=== PATIENT | female | born 1945 | race Caucasian/White ===

== ENCOUNTER 2020-01-03 13:23 | Observation (INO) | payer MEDICARE, OTHER, SELFPAY ==
[2020-01-03] VITALS (21 sets, daily range): BP systolic 168–242; BP diastolic 80–123; PULSE 75–117; RESP 11–24; TEMP 36.8–36.9; O2SAT 97–100; BMI 23.6
--- NOTE | 2020-01-03 13:31 | DI.RAD.S_ITS ---
PROCEDURE: XR CHEST 1V INDICATIONS: chest pain TECHNIQUE: One view of the chest was acquired. COMPARISON: None. FINDINGS: Surgical changes and devices: None. Lungs and pleura: Lungs are clear. No pleural effusions or pneumothorax. Mediastinum: The cardiac contours are within normal limits. The aorta demonstrates calcification and tortuosity. Bones and chest wall: Age-appropriate bony degenerative changes are seen. Mild dextroconvex scoliotic curvature is seen. No suspicious bony lesions. Overlying soft tissues appear unremarkable. IMPRESSION: No acute portable chest abnormality is seen for age. Dictated by: Prieto Frazier M.D. on 01/03/2020 at 13:22 Approved by: Prieto Frazier M.D. on 01/03/2020 at 13:22
[2020-01-03 13:59] LABS: Add Manual Diff / Slide Review NO; Basophils Absolute Auto 100 /uL (0-100); Basophils Percent Auto 1.8 % (0-2); Eosinophils Absolute Auto 200 /uL (0-450); Eosinophils Percent Auto 3.7 % (2-4); Hematocrit 42.4 % (36-46); Hemoglobin 14.4 g/dL (12.0-16.0); INR 0.9 (0.9-1.3); Lymphocytes Absolute Auto 1800 /uL (1100-4500); Lymphocytes Percent Auto 27.1 % (25-40); Mean Corpuscular HGB Conc 33.9 % (30-36); Mean Corpuscular Hemoglobin 33.6 PG (26-34); Mean Corpuscular Volume 99.1 fL (80-100); Monocytes Absolute Auto 500 /uL (0-900); Monocytes Percent Auto 7.5 % (3-14); Neutrophils Absolute Auto 4000 /uL (1500-7000); Neutrophils Percent Auto 59.9 % (50-75); Platelet Count 311 X10^3/uL (150-400); Prothrombin Time 10.2 SECONDS (10.1-12.7); Red Blood Cell Count 4.28 X10^6/uL (4.0-5.2); Red Cell Distribution Width 12.5 % (11.6-14.8); White Blood Cell Count 6.7 X10^3/uL (4.5-11.0)
[2020-01-03 14:01] LABS: PTT Partial Thromboplastin Tim 28 SECONDS (26.4-36.2)
--- NOTE | 2020-01-03 14:01 | ED_ITS ---
HPI - Chest Pain General Chief Complaint: Chest Pain Stated Complaint: PRESSURE IN CHEST Time Seen by Provider: 01/03/20 13:31 Source: patient Mode of arrival: Ambulatory Limitations: no limitations History of Present Illness HPI narrative: Patient complains of worsening substernal chest pressure/heaviness in the past 2 weeks. Worse the last few days. Now her usual activities of walking during golfing or stair climbing causes shortness of breath as well as chest pressure. Currently 07/07. No previous cardiac workup stress test or echocardiogram. Does not smoke. Does take blood pressure medication the mornings. Has history of anxiety. Feels anxious now. Blood pressure noted at this time. No nausea sweating or diaphoresis. No recent long travel immobilization or surgeries. No history of blood clots in legs or lungs. MD complaint: chest pain Related Data Home Medications Medication Instructions Recorded Confirmed aspirin 81 mg PO WEEKLY 01/03/20 01/03/20 cholecalciferol (vitamin D3) 25 mcg PO DAILY 01/03/20 01/03/20 [Vitamin D3] coQ10 (ubiquinol) 100 mg PO DAILY 01/03/20 01/03/20 latanoprost 1 drp EYE-BOTH BEDTIME 01/03/20 01/03/20 lisinopril 40 mg PO DAILY 01/03/20 01/03/20 metoprolol succinate [Toprol XL] 25 mg PO DAILY 01/03/20 01/03/20 metronidazole 1 applic TOPICAL BEDTIME 01/03/20 01/03/20 dqkulgyf-vim-FF-lycopen-lutein 1 tab PO DAILY 01/03/20 01/03/20 [Centrum Silver] psyllium husk [Metamucil] 0.8 g PO DAILY 01/03/20 01/03/20 rosuvastatin 10 mg PO Q OTHER DAY 01/03/20 01/03/20 Allergies Allergy/AdvReac Type Severity Reaction Status Date / Time codeine Allergy Verified 01/03/20 13:31 Review of Systems Review of Systems Narrative: GENERAL: Denies chills, fatigue, malaise, fever, sweats. HEENT: Denies sinus pain, ear pain, sore throat, difficulty swallowing, dizziness. RESPIRATORY: Complains of dyspnea, denies cough, wheezing, hemoptysis, sputum. CARDIOVASCULAR: Complains chest pain, denies palpitations, orthopnea, edema, GASTROINTESTINAL: Denies nausea, vomiting, abdominal pain, diarrhea, constipation, melena. : Denies dysuria, frequency, incontinence, hematuria, urinary retention. MUSCULOSKELETAL: denies weakness, joint pain, or bony pain SKIN: Denies rash, skin lesions NEUROLOGIC: Denies weakness, headache, numbness, change in speech, confusion, seizures, incoordination. PSYCHIATRIC: No concerning psychosocial issues. ROS Unobtainable: All systems reviewed & are unremarkable except as noted in HPI and below Patient History Social History Smoking Status: Unknown if ever smoked Smoking Status: Unknown if ever smoked alcohol intake frequency: 0-2 drinks per day Substance Use Type: does not use Exam Narrative Exam Narrative: GENERAL: patient appears stated age. Well-nourished, well- developed patient, in no distress, not toxic HEAD: Atraumatic. Normocephalic. EYES: Pupils equal round and reactive. Extraocular motions intact. No scleral icterus. No injection or drainage. ENT: Nose without bleeding, purulent drainage. Throat without erythema, tonsilla r hypertrophy or exudate. Airway patent. NECK: Trachea midline. Non tender CARDIOVASCULAR: Regular rate and rhythm without murmurs, gallops, or rubs. RESPIRATORY: Clear to auscultation. Breath sounds equal bilaterally. No wheezes, rales, or rhonchi. GASTROINTESTINAL: Abdomen soft, non-tender, nondistended. EXTREMITIES: No edema or joint tenderness. BACK: Nontender without deformity or crepitance. No flank tenderness. NEURO: AOx4. SKIN: No rash or erythema of visible areas PSYCH: Not anxious, is cooperative Initial Vital Signs Initial Vital Signs: Vital Signs Temperature 98.2 F 01/03/20 13:26 Pulse Rate 95 H 01/03/20 13:26 Respiratory Rate 15 01/03/20 13:26 Blood Pressure 242/123 H 01/03/20 13:26 Pulse Oximetry 98 01/03/20 13:26 Course Course Course Narrative: Patient did have complete chest pressure relief after nitro. She took aspirin prior to arrival blood pressures improved Decision to Admit Date: 01/03/20 Decision to Admit time: 15:11 Orders Ordered: ED Orders 01/03/20 13:30 Complete Blood Count AUTO DIFF Stat Comprehensive Metabolic Panel Stat Lipase Stat Partial Thromboplastin Time Stat Prothrombin Time INR Stat Troponin & CK Cardiac Panel Stat 01/03/20 13:31 XR chest 1V Stat EKG-12 Lead Stat 01/03/20 14:40 COVID19 -ED/INPAT/OR/L&D Stat Discontinued Medications Aspirin (Aspirin Chew) 324 mg PO NOW ONE Stop: 01/03/20 14:02 Last Admin: 01/03/20 14:14 Dose: Not Given Documented by: SERGIO Nitroglycerin (Nitro-Bid) 0.5 inch TOP NOW ONE Stop: 01/03/20 14:02 Last Admin: 01/03/20 14:13 Dose: 0.5 inch Documented by: SERGIO Reevaluation(s) Reevaluation #1: Chest pain-free. Blood pressure improved 181/81 pulse 76 Time: 15:11 Consultations Consultation #1: Spoke with cardiology dr patricia, patient could be admitted here through hospitalist and have echocardiogram done tomorrow in complete series of enzymes. If normal can be discharged after tomorrow and have outpatient stress test on Sunday, otherwise patient can also be transferred to [facility] to hospitalist Time: 15:12 Consultation #2: Spoke with hospitalist Dr. Vivar, will admit Time: 15:43 Vital Signs Vital signs: Vital Signs - 8 hr 01/03/20 13:26 01/03/20 13:33 01/03/20 13:45 Temperature 98.2 F Pulse Rate 95 H 117 H 80 Respiratory Rate 15 15 11 L Blood Pressure 242/123 H 229/97 H Pulse Oximetry 98 100 100 01/03/20 14:00 01/03/20 14:01 01/03/20 14:13 Temperature Pulse Rate 77 78 75 Respiratory Rate 22 24 Blood Pressure 197/93 H 197/93 H Pulse Oximetry 100 100 01/03/20 14:15 01/03/20 14:30 01/03/20 14:45 Temperature Pulse Rate 75 76 76 Respiratory Rate 13 17 19 Blood Pressure 204/95 H 181/81 H 168/80 H Pulse Oximetry 100 100 99 01/03/20 15:00 01/03/20 15:15 01/03/20 15:30 Temperature Pulse Rate 103 H 81 80 Respiratory Rate 20 22 18 Blood Pressure 181/86 H 185/91 H 186/88 H Pulse Oximetry 99 99 99 01/03/20 15:45 01/03/20 16:00 01/03/20 16:15 Temperature Pulse Rate 81 109 H 81 Respiratory Rate 21 14 12 Blood Pressure 172/83 H 188/92 H 192/91 H Pulse Oximetry 99 99 98 MDM - Chest Pain Differential Diagnosis Differential diagnosis: Likely stable angina, unstable angina pectoris and atypical chest pain Lab Data Attestation: I reviewed the patient's lab results. Result diagrams: 01/03/20 13:30 01/03/20 13:30 Labs: Lab Results 01/03/20 01/03/20 01/03/20 Range/Units 13:30 13:30 13:30 WBC 6.7 (4.5-11.0) X10^3/uL RBC 4.28 (4.0-5.2) X10^6/uL Hgb 14.4 (12.0-16.0) g/dL Hct 42.4 (36-46) % MCV 99.1 (80-100) fL MCH 33.6 (26-34) PG MCHC 33.9 (30-36) % RDW 12.5 (11.6-14.8) % Plt Count 311 (150-400) X10^3/uL Neut % (Auto) 59.9 (50-75) % Lymph % (Auto) 27.1 (25-40) % [place] % (Auto) 7.5 (3-14) % Eos % (Auto) 3.7 (2-4) % Baso % (Auto) 1.8 (0-2) % Neut # (Auto) 4000 (2394-0553) /uL Lymph # (Auto) 1800 (5719-6612) /uL [place] # (Auto) 500 (0-900) /uL Eos # (Auto) 200 (0-450) /uL Baso # (Auto) 100 (0-100) /uL PT 10.2 (10.1-12.7) SECONDS INR 0.9 (0.9-1.3) APTT 28 (26.4-36.2) SECONDS Sodium 131 L (137-145) mmol/L Potassium 4.0 (3.4-5.1) mmol/L Chloride 96 L (98-107) mmol/L Carbon Dioxide 27 (22-32) mmol/L BUN 9 (7-17) mg/dL Creatinine 0.54 (0.52-1.04) mg/dL Estimated GFR > 60.0 (>60) mL/min BUN/Creatinine Ratio 16.7 (6-22) Glucose 113 H (80-110) mg/dL Calcium 9.6 (8.4-10.2) mg/dL Total Bilirubin 0.7 (0.2-1.3) mg/dL AST 49 H (14-36) IU/L ALT 31 (<35) IU/L Alkaline Phosphatase 85 (38-126) U/L Total Creatine Kinase 274 H (30-135) U/L CK-MB (CK-2) 9.87 H (<2.37) ng/mL CK-MB (CK-2) Rel Index 3.6 (1.5-5.0) % Troponin I < 0.012 (0.01-0.034) ng/mL Total Protein 8.3 H (6.3-8.2) g/dL Albumin 5.0 (3.5-5.0) g/dL Globulin 3.3 (1.7-4.1) g/dL Albumin/Globulin Ratio 1.5 (1.0-2.8) Lipase 133 (23-300) U/L COVID-19 PCR (Negative) 01/03/20 Range/Units 14:40 WBC (4.5-11.0) X10^3/uL RBC (4.0-5.2) X10^6/uL Hgb (12.0-16.0) g/dL Hct (36-46) % MCV (80-100) fL MCH (26-34) PG MCHC (30-36) % RDW (11.6-14.8) % Plt Count (150-400) X10^3/uL Neut % (Auto) (50-75) % Lymph % (Auto) (25-40) % [place] % (Auto) (3-14) % Eos % (Auto) (2-4) % Baso % (Auto) (0-2) % Neut # (Auto) (9592-9088) /uL Lymph # (Auto) (1730-7703) /uL [place] # (Auto) (0-900) /uL Eos # (Auto) (0-450) /uL Baso # (Auto) (0-100) /uL PT (10.1-12.7) SECONDS INR (0.9-1.3) APTT (26.4-36.2) SECONDS Sodium (137-145) mmol/L Potassium (3.4-5.1) mmol/L Chloride (98-107) mmol/L Carbon Dioxide (22-32) mmol/L BUN (7-17) mg/dL Creatinine (0.52-1.04) mg/dL Estimated GFR (>60) mL/min BUN/Creatinine Ratio (6-22) Glucose (80-110) mg/dL Calcium (8.4-10.2) mg/dL Total Bilirubin (0.2-1.3) mg/dL AST (14-36) IU/L ALT (<35) IU/L Alkaline Phosphatase (38-126) U/L Total Creatine Kinase (30-135) U/L CK-MB (CK-2) (<2.37) ng/mL CK-MB (CK-2) Rel Index (1.5-5.0) % Troponin I (0.01-0.034) ng/mL Total Protein (6.3-8.2) g/dL Albumin (3.5-5.0) g/dL Globulin (1.7-4.1) g/dL Albumin/Globulin Ratio (1.0-2.8) Lipase (23-300) U/L COVID-19 PCR Negative (Negative) Imaging Data Chest x-ray: Radiologist's Impression: [address] [address] XRay Report Signed Patient: Joy Paniagua LMR#: [id number] : 6Acct:[id number] Age/Sex: 74 / FDate of Service: 01/03/20 Loc: ED Accession Number: [id number] Procedure: XR chest 1V Ordering Provider: Jitendra Sequeira MD PROCEDURE: XR CHEST 1V INDICATIONS: chest pain TECHNIQUE: One view of the chest was acquired. COMPARISON: None. FINDINGS: Surgical changes and devices: None. Lungs and pleura: Lungs are clear. No pleural effusions or pneumothorax. Mediastinum: The cardiac contours are within normal limits. The aorta demonstrates calcification and tortuosity. Bones and chest wall: Age-appropriate bony degenerative changes are seen. Mild dextroconvex scoliotic curvature is seen. No suspicious bony lesions. Overlying soft tissues appear unremarkable. IMPRESSION: No acute portable chest abnormality is seen for age. Dictated by: Prieto Frazier M.D. on 01/03/2020 at 13:22 Approved by: Prieto Frazier M.D. on 01/03/2020 at 13:22 ECG Data Attestation: I personally reviewed and interpreted this ECG as follows: Interpretation: Sinus tachycardia rate [address] elevation or depression MDM Narrative Medical decision making narrative: Appropriate for admission hospital. Blood pressure noted on arrival, has improved. Chest pain relief with nitro paste. Spoke with oxyhydrogen welder for recommendations Discharge Plan Departure Patient Disposition: Admitted as Observation Clinical Impression: Stable angina Discharge Date/Time: 01/03/20 16:35 Admit Date/Time: 01/03/20 16:34 Admit Provider: Erendira Vivar
[2020-01-03 14:03] LABS: Alanine Aminotransferase 31 IU/L (<35); Albumin Globulin Ratio 1.5 (1.0-2.8); Alkaline Phosphatase 85 U/L (38-126); Aspartate Aminotransferase 49 IU/L (14-36); BUN Creatinine Ratio 16.7 (6-22); Bilirubin Total 0.7 mg/dL (0.2-1.3); Blood Urea Nitrogen 9 mg/dL (7-17); Calcium 9.6 mg/dL (8.4-10.2); Carbon Dioxide 27 mmol/L (22-32); Chloride 96 mmol/L (98-107); Creatine Kinase 274 U/L (30-135); Estimated Glomerular Filt Rate > 60.0 mL/min (>60); Globulin 3.3 g/dL (1.7-4.1); Glucose 113 mg/dL (80-110); HEMOLYSIS < 15 (0-50); Lipase 133 U/L (23-300); Sodium 131 mmol/L (137-145); Total Protein 8.3 g/dL (6.3-8.2)
--- NOTE | 2020-01-03 14:06 | PC.NURSE ---
Denies chest pain. Reports substernal/epigastric chest pressure for the past 3 weeks that has worsened over the last 4-5 days.
[2020-01-03] MEDS: NITROGLYCERIN OINT 1 INCH/GM OINT...G. 0.5 INCH TOP (14:13)
--- NOTE | 2020-01-03 14:14 | PC.NURSE ---
Pt reported that she took 325mg PO aspirin immediately before coming to ED today. MD aware and ED aspirin not given
[2020-01-03 14:16] LABS: Troponin I < 0.012 ng/mL (0.01-0.034)
[2020-01-03 14:18] LABS: CKMB % Relative Index 3.6 % (1.5-5.0); Creatine Kinase MB 9.87 ng/mL (<2.37)
[2020-01-03 15:00] LABS: COVID19 -Nasal RAPID Negative (Negative)
--- NOTE | 2020-01-03 17:20 | PC.ADMIT ---
Admission Note: The patient,Joy Paniagua,74 y/o, was given written information regarding hospital policies, unit procedures and contact persons. Patient's smoking status: Unknown if ever smoked. Pt arrived from ED via stretcher. Oriented to room and call system. Denies chest pain or pressure. Dinner provided. Pt verbalized she will call for needs. Bed alarm placed on for safety. Vital Signs - 8 hr 01/03/20 13:26 01/03/20 13:33 01/03/20 13:45 Temperature 98.2 F Pulse Rate 95 H 117 H 80 Respiratory Rate 15 15 11 L Blood Pressure 242/123 H 229/97 H Pulse Oximetry 98 100 100 01/03/20 14:00 01/03/20 14:01 01/03/20 14:13 Temperature Pulse Rate 77 78 75 Respiratory Rate 22 24 Blood Pressure 197/93 H 197/93 H Pulse Oximetry 100 100 01/03/20 14:15 01/03/20 14:30 01/03/20 14:45 Temperature Pulse Rate 75 76 76 Respiratory Rate 13 17 19 Blood Pressure 204/95 H 181/81 H 168/80 H Pulse Oximetry 100 100 99 01/03/20 15:00 01/03/20 15:15 01/03/20 15:30 Temperature Pulse Rate 103 H 81 80 Respiratory Rate 20 22 18 Blood Pressure 181/86 H 185/91 H 186/88 H Pulse Oximetry 99 99 99 01/03/20 15:45 01/03/20 16:00 01/03/20 16:15 Temperature Pulse Rate 81 109 H 81 Respiratory Rate 21 14 12 Blood Pressure 172/83 H 188/92 H 192/91 H Pulse Oximetry 99 99 98 01/03/20 17:13 01/03/20 17:15 Temperature Pulse Rate 83 Respiratory Rate Blood Pressure 189/96 H Pulse Oximetry 98
[2020-01-03] MEDS: AMLODIPINE 5 MG TABLET 10 MG PO (17:28)
[2020-01-03] MEDS: NITROGLYCERIN OINT 1 INCH/GM OINT...G. TOP (17:29)
[2020-01-03 18:48] LABS: UR Morphine/Opiate cutoff 300 Negative (Negative); Ur Creatinine Normal (Normal); Ur Specific Gravity Normal (Normal); Urine Amphetamines Negative (Negative); Urine Barbiturates Negative (Negative); Urine Benzodiazepines Negative (Negative); Urine Cocaine Negative (Negative); Urine MDMA Negative (Negative); Urine Methadone Negative (Negative); Urine Methamphetamines Negative (Negative); Urine Oxycodone Negative (Negative); Urine Phencyclidine Negative (Negative); Urine Tetrahydrocannabinol Negative (Negative); Urine Tricyclic Antidepressant Negative (Negative); Urine pH Normal (Normal)
[2020-01-03 20:00] LABS: Hemoglobin A1C% w Est Avg Glu 5.5 % (4.0-6.0)
[2020-01-03] MEDS: ROSUVASTATIN 10 MG TABLET PO (21:10)
[2020-01-03 21:27] LABS: Troponin I < 0.012 ng/mL (0.01-0.034)
--- NOTE | 2020-01-03 21:52 | P.HP_ITS ---
History of Present Illness History of Present Illness Date Patient Seen: 01/03/20 Time Patient Seen: 19:40 Chief complaint: PRESSURE IN CHEST Narrative: Joy Paniagua is a very delightful 74-year-old female who presented with a several week history of intermittent chest pressure. It started to persist 3 days ago. 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 She had been thinking it was mostly due to stress and anxiety but was encouraged by her to have this checked out. She contacted [facility] and they encouraged her to come here instead of [facility] the triage provider thought that 3rd be a high probability she would need to be transferred if she wanted [facility]. She was requested for observation admission due to her having very high blood pressure which at the time of presentation to the ED was 242/123. She denies a history of headaches, chills fever, nausea or vomiting, actual sternal pain, palpitations, abdominal pain, she has had a couple of days of diarrhea, denies constipation, denies neurological symptoms. EKG indicated sinus tachycardia as reviewed by myself. Currently the patient is afebrile at 98.5, blood pressure 170/89, heart rate 83, respiratory rate 19, oxygen saturation of 97% on room air, she weighs 72.5 kg with a BMI of 23.6. Initial troponin in the ED was negative done at 1:30 p.m., second troponin done 6 hours later was also negative. CBC panel was all within normal limits, she was mildly hyponatremic with a sodium of 131, potassium 4.0, chloride 96, bicarb 27, creatinine 0.54, BUN 9, GFR is greater than 60, glucose mildly elevated 113, A1c 5.5, calcium 9.6, total bili was 0.7, AST 49, ALT 31, alk-phos 85, creatinine kinase was elevated at 274, CK-MB elevated at 9.87, 1930 troponin was negative, COVID-19 negative. Patient History Medical History (Updated 01/03/20 @ 22:01 by [place] [facility]) Essential hypertension (Chronic) Hyperlipidemia (Chronic) Surgical History (Updated 01/03/20 @ 22:01 by [place] [facility]) History of hysterectomy (Acute) History of repair of rotator cuff (Acute) Family & Social History Family History (Updated 01/03/20 @ 22:02 by [place] [facility]) Mother Esophageal cancer Tobacco dependence Father Lung cancer Tobacco dependence Social History: household members spouse Prior Living Arrangements House Safety & Behavioral: Feels Safe in Current Yes Environment Been Physically Hurt or No Threatened By a Person Suicidal Ideation Description None Tobacco & Substance use: Smoking Status never smoker alcohol intake frequency 0-2 drinks per day Substance Use Type does not use Meds Home Medications and Allergies Home Medications Medication Instructions Recorded Confirmed Type aspirin 81 mg PO WEEKLY 01/03/20 01/03/20 History cholecalciferol (vitamin D3) 25 mcg PO DAILY 01/03/20 01/03/20 History [Vitamin D3] coQ10 (ubiquinol) 100 mg PO DAILY 01/03/20 01/03/20 History latanoprost 1 drp EYE-BOTH BEDTIME 01/03/20 01/03/20 History lisinopril 40 mg PO DAILY 01/03/20 01/03/20 History metoprolol succinate [Toprol XL] 25 mg PO DAILY 01/03/20 01/03/20 History metronidazole 1 applic TOPICAL BEDTIME 01/03/20 01/03/20 History bqzrguqz-dsw-YP-lycopen-lutein 1 tab PO DAILY 01/03/20 01/03/20 History [Centrum Silver] psyllium husk [Metamucil] 0.8 g PO DAILY 01/03/20 01/03/20 History rosuvastatin 10 mg PO Q OTHER DAY 01/03/20 01/03/20 History Allergies Allergy/AdvReac Type Severity Reaction Status Date / Time codeine Allergy Verified 01/03/20 13:31 Review of Systems Review of Systems ROS: Yes All systems reviewed with the patient and are negative except as other matt documented Exam Vital Signs (past 8 hours): - 01/03/20 14:00 01/03/20 14:01 01/03/20 14:13 Temperature Pulse Rate 77 78 75 Respiratory Rate 22 24 Blood Pressure 197/93 H 197/93 H Pulse Oximetry 100 100 01/03/20 14:15 01/03/20 14:30 01/03/20 14:45 Temperature Pulse Rate 75 76 76 Respiratory Rate 13 17 19 Blood Pressure 204/95 H 181/81 H 168/80 H Pulse Oximetry 100 100 99 01/03/20 15:00 01/03/20 15:15 01/03/20 15:30 Temperature Pulse Rate 103 H 81 80 Respiratory Rate 20 22 18 Blood Pressure 181/86 H 185/91 H 186/88 H Pulse Oximetry 99 99 99 01/03/20 15:45 01/03/20 16:00 01/03/20 16:15 Temperature Pulse Rate 81 109 H 81 Respiratory Rate 21 14 12 Blood Pressure 172/83 H 188/92 H 192/91 H Pulse Oximetry 99 99 98 01/03/20 17:08 01/03/20 17:13 01/03/20 17:15 Temperature 98.5 F Pulse Rate 105 H 83 Respiratory Rate 19 Blood Pressure 189/96 H Pulse Oximetry 98 98 01/03/20 17:29 01/03/20 18:26 01/03/20 21:00 Temperature Pulse Rate 93 H 83 Respiratory Rate Blood Pressure 189/96 H 174/89 H Pulse Oximetry 97 Oxygen Delivery Method Room Air Oxygen Flow Rate 0 Narrative Exam Narrative: Gen: Alert, oriented, well-developed 74 y.o. female, appears younger than stated age HEENT: normocephalic, atraumatic, conjunctiva clear, sclera non-icteric, oral mucosa pink and moist Neck: supple, full ROM, no JVD, trachea is midline Resp: Lungs CTA, non-labored breathing CV: RRR, no murmur or rubs Abd: soft, non-tender, normoactive BTs Skin: no lesions or rashes, dry and intact Neuro: Alert and oriented X 4 w/no focal deficits. Speech clear and coherent. Extremities: moves all 4 extremities, is ambulatory, negative Jamey?s sign Psyche: Very pleasant, normal mood and affect. Objective Labs Result Diagrams: 01/03/20 13:30 01/03/20 13:30 Labs: Laboratory Results - last 24 hr 01/03/20 01/03/20 01/03/20 13:30 13:30 13:30 WBC 6.7 RBC 4.28 Hgb 14.4 Hct 42.4 MCV 99.1 MCH 33.6 MCHC 33.9 RDW 12.5 Plt Count 311 Neut % (Auto) 59.9 Lymph % (Auto) 27.1 [place] % (Auto) 7.5 Eos % (Auto) 3.7 Baso % (Auto) 1.8 Neut # (Auto) 4000 Lymph # (Auto) 1800 [place] # (Auto) 500 Eos # (Auto) 200 Baso # (Auto) 100 PT 10.2 INR 0.9 APTT 28 Sodium 131 L Potassium 4.0 Chloride 96 L Carbon Dioxide 27 BUN 9 Creatinine 0.54 Estimated GFR > 60.0 BUN/Creatinine Ratio 16.7 Glucose 113 H Hemoglobin A1c Calcium 9.6 Total Bilirubin 0.7 AST 49 H ALT 31 Alkaline Phosphatase 85 Total Creatine Kinase 274 H CK-MB (CK-2) 9.87 H CK-MB (CK-2) Rel Index 3.6 Troponin I < 0.012 Total Protein 8.3 H Albumin 5.0 Globulin 3.3 Albumin/Globulin Ratio 1.5 Lipase 133 U Opiates 300ng/mL cut Ur Oxycodone Screen Urine Methadone Screen Ur Barbiturates Screen U Tricyclic Antidepress Ur Phencyclidine Scrn Ur Amphetamines Screen U Methamphetamines Scrn Ur MDMA Scrn (Ecstasy) U Benzodiazepines Scrn Urine Cocaine Screen U Marijuana (THC) Screen COVID-19 PCR 01/03/20 01/03/20 01/03/20 13:30 14:40 18:10 WBC RBC Hgb Hct MCV MCH MCHC RDW Plt Count Neut % (Auto) Lymph % (Auto) [place] % (Auto) Eos % (Auto) Baso % (Auto) Neut # (Auto) Lymph # (Auto) [place] # (Auto) Eos # (Auto) Baso # (Auto) PT INR APTT Sodium Potassium Chloride Carbon Dioxide BUN Creatinine Estimated GFR BUN/Creatinine Ratio Glucose Hemoglobin A1c 5.5 Calcium Total Bilirubin AST ALT Alkaline Phosphatase Total Creatine Kinase CK-MB (CK-2) CK-MB (CK-2) Rel Index Troponin I Total Protein Albumin Globulin Albumin/Globulin Ratio Lipase U Opiates 300ng/mL cut Negative Ur Oxycodone Screen Negative Urine Methadone Screen Negative Ur Barbiturates Screen Negative U Tricyclic Antidepress Negative Ur Phencyclidine Scrn Negative Ur Amphetamines Screen Negative U Methamphetamines Scrn Negative Ur MDMA Scrn (Ecstasy) Negative U Benzodiazepines Scrn Negative Urine Cocaine Screen Negative U Marijuana (THC) Screen Negative COVID-19 PCR Negative 01/03/20 20:48 WBC RBC Hgb Hct MCV MCH MCHC RDW Plt Count Neut % (Auto) Lymph % (Auto) [place] % (Auto) Eos % (Auto) Baso % (Auto) Neut # (Auto) Lymph # (Auto) [place] # (Auto) Eos # (Auto) Baso # (Auto) PT INR APTT Sodium Potassium Chloride Carbon Dioxide BUN Creatinine Estimated GFR BUN/Creatinine Ratio Glucose Hemoglobin A1c Calcium Total Bilirubin AST ALT Alkaline Phosphatase Total Creatine Kinase CK-MB (CK-2) CK-MB (CK-2) Rel Index Troponin I < 0.012 Total Protein Albumin Globulin Albumin/Globulin Ratio Lipase U Opiates 300ng/mL cut Ur Oxycodone Screen Urine Methadone Screen Ur Barbiturates Screen U Tricyclic Antidepress Ur Phencyclidine Scrn Ur Amphetamines Screen U Methamphetamines Scrn Ur MDMA Scrn (Ecstasy) U Benzodiazepines Scrn Urine Cocaine Screen U Marijuana (THC) Screen COVID-19 PCR Assessment & Plan Assessment & Plan narrative: Joy Paniagua will be observed and ruled out for ACS. We do not have stress testing over the weekend and will not until Sunday, however felt prudent to keep her overnight and have her undergo an echocardiogram in the morning. ACS rule out -Complete echocardiogram in the morning -nitroglycerin for pain Essential hypertension, malignant on admission currently resolving -continue home dose of metoprolol XL 25 mg p.o. daily and lisinopril 40 mg p.o. daily Hyperlipidemia, chronic -fasting lipid panel in the morning -her home dose of rosuvastatin 10 mg every other day as been increased to daily Risk stratification -hemoglobin A1c was 5.5, mildly elevated glucose is likely stress induced VTE prophylaxis: Caprini risk score: 3, moderate, Enoxaparin 40 mg subQ daily Consults: none if with positive echo, will need to set her up with a stress test and set her up with cardiology Patient is observation status as her stay is not likely to exceed 2 midnights. FEN: NS at 100 ml/hour, heart healthy diet, BMP and magnesium in the am. Dispo: probable discharge to home w/referral for a stress test Code Status: Full code as discussed with patient
[2020-01-04] VITALS (9 sets, daily range): BP systolic 145–180; BP diastolic 75–110; PULSE 69–112; RESP 16–18; TEMP 35.9–36.7; O2SAT 98–99
[2020-01-04] MEDS: SODIUM CHLORIDE 0.9% 1,000 ML 100 ML IV (00:11)
[2020-01-04] MEDS: ACETAMINOPHEN 325 MG TABLET 650 MG PO (00:14)
[2020-01-04 05:11] LABS: Cholesterol 200 mg/dL (140-199); HDL Cholesterol 95 mg/dL (40-60); LDL Cholesterol Calculated 84 mg/dL (<100); Triglycerides 103 mg/dL (35-150)
[2020-01-04 05:22] LABS: Troponin I < 0.012 ng/mL (0.01-0.034)
[2020-01-04 06:21] LABS: Add Manual Diff / Slide Review NO; Basophils Absolute Auto 100 /uL (0-100); Basophils Percent Auto 1.8 % (0-2); Eosinophils Absolute Auto 300 /uL (0-450); Eosinophils Percent Auto 4.5 % (2-4); Hematocrit 39.6 % (36-46); Hemoglobin 13.4 g/dL (12.0-16.0); Lymphocytes Absolute Auto 1300 /uL (1100-4500); Lymphocytes Percent Auto 20.3 % (25-40); Mean Corpuscular HGB Conc 33.7 % (30-36); Mean Corpuscular Hemoglobin 33.5 PG (26-34); Mean Corpuscular Volume 99.4 fL (80-100); Monocytes Absolute Auto 600 /uL (0-900); Neutrophils Absolute Auto 3900 /uL (1500-7000); Neutrophils Percent Auto 63.4 % (50-75); Platelet Count 270 X10^3/uL (150-400); Red Blood Cell Count 3.99 X10^6/uL (4.0-5.2); Red Cell Distribution Width 12.6 % (11.6-14.8); White Blood Cell Count 6.2 X10^3/uL (4.5-11.0)
[2020-01-04 06:26] LABS: Blood Urea Nitrogen 8 mg/dL (7-17); Calcium 9.1 mg/dL (8.4-10.2); Carbon Dioxide 27 mmol/L (22-32); Chloride 99 mmol/L (98-107); Estimated Glomerular Filt Rate > 60.0 mL/min (>60); Glucose 104 mg/dL (80-110); HEMOLYSIS < 15 (0-50); Sodium 131 mmol/L (137-145)
[2020-01-04] MEDS: LABETALOL 20 MG/4 ML SYRINGE 10 MG IV (07:58)
[2020-01-04] MEDS: ENOXAPARIN 40 MG/0.4 ML SYRINGE SUBCUT (08:03)
[2020-01-04] MEDS: METOPROLOL ER 25 MG TABLET PO (08:03)
[2020-01-04] MEDS: AMLODIPINE 5 MG TABLET 10 MG PO (08:03)
[2020-01-04] MEDS: lisinopriL 20 MG TABLET 40 MG PO (08:03)
--- NOTE | 2020-01-04 09:49 | DI.ECHO.S_ITS ---
Echocardiogram Report + + :Name: GONZALES CARROLL Study Date: 01/04/2020 Height: 69 in : :[facility] Weight: 160 lb : : Gender: Female BSA: 1.9 m2 : :: 1945 Age: 74 yrs BP: 174/90 mmHg: :Reason For Study: CHEST PRESSURE, HYPERTENSIVE URGENCY : :Ordering Physician: : :HOSPITALISTYENI Performed By: Jo Gray : :Referring: LOU MILLAN : + + Interpretation Summary The left ventricle is normal in size and wall thickness. The ejection fraction is estimated to be 70-75%. The left ventricle is hyperdynamic. There is no echo evidence for significant left ventricular outflow tract obstruction. The right ventricle is normal in size and function. No significant valvular pathology seen. There is aortic root sclerosis/calcification. Mild atherosclerotic plaque(s) in the descending aorta. The IVC is of normal diameter and collapses greater than 50% with a sniff. This suggests a low right atrial pressure of 3 mm Hg. Procedure: A two-dimensional transthoracic echocardiogram with color flow and Doppler was performed. The study quality was technically adequate. There is no prior echocardiogram noted for this patient. The patient was in sinus rhythm with heart rates between 80-88 bpm during the exam. Left Ventricle: The left ventricle is normal in size and wall thickness. There is no echo evidence for significant left ventricular outflow tract obstruction. There is no thrombus. The ejection fraction is estimated to be 70-75%. The left ventricle is hyperdynamic. Diastolic parameters suggest a relaxation abnormality of the left ventricle, consistent with probable normal filling pressures. Right Ventricle: The right ventricle is normal in size and function. Atria: The left atrial size is normal. Right atrial size is normal. There is no Doppler evidence for an interatrial shunt. Mitral Valve: There is mild mitral annular calcification. There is trace mitral regurgitation. Aortic Valve: The aortic valve is trileaflet. The aortic valve opens well. The aortic valve is slightly calcified. There is no aortic valve stenosis. No aortic regurgitation is present. Tricuspid Valve: The tricuspid valve is normal. Pulmonary artery pressures cannot be estimated because of the lack of a measurable TR jet velocity but the IVC suggests a CVP of around 3 mmHg. There is trace tricuspid regurgitation. Pulmonic Valve: The pulmonic valve is not well visualized. There is no pulmonic valvular regurgitation. Great Vessels: The aortic root is normal size. There is aortic root sclerosis/calcification. The ascending aorta could not be visualized. Mild atherosclerotic plaque(s) in the descending aorta. The IVC is of normal diameter and collapses greater than 50% with a sniff. This suggests a low right atrial pressure of 3 mm Hg. Pericardium/ Pleura There is no pericardial effusion. There is no pleural effusion. MMode/2D Measurements & Calculations LVIDd: 4.0 cm LVOT diam: 2.1 cm LVIDs: 2.6 cm Ao root diam: 3.2 cm FS: 35.4 % Ao Arch Diam (Prox Trans): 2.7 cm EPSS: 0.31 cm IVSd: 1.0 cm LVPWd: 0.97 cm LV garnett. diameter/BSA (cm/m^2): 2.1 LV sys. diameter/BSA (cm/m^2): 1.4 LA A2 area: 26.7 cm2 RA long axis: 4.9 cm LA A4 area: 14.4 cm2 RA area: 16.1 cm2 LA length (vol): 5.4 cm RA vol: 44.7 ml LA vol: 60.4 ml RA : 23.8 ml/m2 LA vol index: 32.2 ml/m2 IVC diam: 1.8 cm RVD1 (basal): 3.4 cm TAPSE: 2.8 cm Doppler Measurements & Calculations Ao V2 max: 162.1 cm/sec LVOT Max Luis Carlos: 121.0 cm/sec Ao V2 mean: 105.7 cm/sec LV V1 max P.9 mmHg Ao max P.5 mmHg LV V1 VTI: 23.3 cm Ao mean P.2 mmHg GODL(I,D): 2.6 cm2 Ao V2 VTI: 30.2 cm GOLD(V,D): 2.5 cm2 sev ratio: 0.77 GOLD indexed to BSA (cm^2/m^2): 1.4 MV E max luis carlos: 67.0 cm/sec PA pr(Accel): 3.6 mmHg MV A max luis carlos: 98.3 cm/sec MV E/A: 0.68 Med Peak E' Luis Carlos: 10.0 cm/sec E/E' med: 6.7 Lat Peak E' Luis Carlos: 10.0 cm/sec E/E' lat: 6.7 E/e' average: 6.7 MV dec time: 0.23 sec SV([facility]): 78.7 ml Reading Physician:01:19 PM
--- NOTE | 2020-01-04 11:03 | PC.NURSE ---
Patients bp initially 180/103 and p112, she complained of chest tightness at 3/10. aware, she wanted to give patient her blood pressure medication and ekg obtained. Patients blood pressure down to 140s/70s and her chest pressure has resolved. She just had her echo, is going to discharge her this afternoon.
--- NOTE | 2020-01-04 14:59 | PM.DS.1 ---
History of Present Illness History of Present Illness Date Patient Seen: 01/03/20 Chief complaint: PRESSURE IN CHEST Narrative: Written by Ruth BERNARDO: Joy Paniagua is a very delightful 74-year-old female who presented with a several week history of intermittent chest pressure. It started to persist 3 days ago. 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 She had been thinking it was mostly due to stress and anxiety but was encouraged by her to have this checked out. [facility] come here instead of [facility] the triage provider thought that 3rd be a high probability she would need to be transferred if she wanted [facility]. She was requested for observation admission due to her having very high blood pressure which at the time of presentation to the ED was 242/123. She denies a history of headaches, chills fever, nausea or vomiting, actual sternal pain, palpitations, abdominal pain, she has had a couple of days of diarrhea, denies constipation, denies neurological symptoms. EKG indicated sinus tachycardia as reviewed by myself. Currently the patient is afebrile at 98.5, blood pressure 170/89, heart rate 83, respiratory rate 19, oxygen saturation of 97% on room air, she weighs 72.5 kg with a BMI of 23.6. Initial troponin in the ED was negative done at 1:30 p.m., second troponin done 6 hours later was also negative. CBC panel was all within normal limits, she was mildly hyponatremic with a sodium of 131, potassium 4.0, chloride 96, bicarb 27, creatinine 0.54, BUN 9, GFR is greater than 60, glucose mildly elevated 113, A1c 5.5, calcium 9.6, total bili was 0.7, AST 49, ALT 31, alk-phos 85, creatinine kinase was elevated at 274, CK-MB elevated at 9.87, 1930 troponin was negative, COVID-19 negative. Discharge Providers Provider Date of admission: 01/03/20 16:34 Discharge Date: 01/04/20 Discharge provider: Erendira Vivar DO Summary Hospital Course Discharge Diagnosis: 1. Acute chest pressure, present on admission. Resolved. 2. Hypertensive urgency in setting of chronic essential hypertension, present on admission. Hypertensive urgency resolved. 3. Hyperlipidemia, chronic, present on admission. Stable. Hospital Course: Joy Paniagua is a 74-year-old female with a past medical history significant for hypertension and hyperlipidemia who presented to the ED a several week history of intermittent chest pressure. 1. Acute chest pressure, present on admission. Resolved. -Patient presented with several week history of intermittent chest pressure which progressed to persistent substernal nonradiating chest pressure with associated dyspnea. Chest pressure improved with treatment of hypertension. -Cardiac risk factors include: Uncontrolled hypertension, hyperlipidemia (controlled), age, high stress level, and possible obstructive sleep apnea. -EKG demonstrated sinus rhythm with possible pathological Q-waves in leads V1 and V2 indicative of old septal infarct without acute ischemic changes such as ST elevation or depression. Continue to monitor closely on telemetry. Patient remained in sinus rhythm throughout hospitalization without significant ectopy. -Trended serial troponins x3 which were < 0.012. Patient did have slightly elevated total creatinine kinase likely due to vigorous exercise. -Risk stratified with hemoglobin A1c which was normal at 5.5% and fasting lipid panel which demonstrated excellent lipid control with total cholesterol 200, triglyceride 103, LDL 84 (goal <100) and HDL 95. -Echocardiogram unremarkable and did not demonstrate any wall motion abnormalities. The left ventricle is normal in size and wall thickness, hyperdynamic with EF 70-75%, no evidence for significant LV outflow tract obstruction, RV normal size and function, no significant valvular pathology, aortic root sclerosis/calcification and mild atherosclerotic plaque(s) in the descending aorta, and IVC is of normal diameter and collapses greater than 50% with a sniff which suggests a low right atrial pressure of 3 mm Hg. -Continued nitroglycerin 0.4 mg sublingual every 5 minutes as needed for chest pressure. -Continued aspirin 81 mg weekly and rosuvastatin 10 mg every other day. -Recommended outpatient cardiac stress test in the next 1-2 weeks and outpatient sleep study per PCP. 2. Hypertensive urgency in setting of chronic essential hypertension, present on admission. Hypertensive urgency resolved. -Initial blood pressure 242/123 without end-organ dysfunction. Slowly lowered patient's blood pressure with average SBP 140's prior to discharge. -Received 0.5 in nitroglycerin paste in ED with mild improvement in blood pressure. -Continued home metoprolol succinate 25 mg daily and lisinopril 40 mg daily. Started and continued amlodipine 10 mg daily. Ordered labetalol 10 mg IV every 6 hours as needed for SBP > 180 mm Hg and HR > 60 bpm. If hypertension persistent would consider diuretic and/or upward titration of metoprolol. -Continued low-sodium diet and recommended patient cut back on sodium intake and alcohol use (patient admits to 2 glasses of white wine every night). -Recommended patient monitor blood pressure with 4 blood pressure measurements a day (2 in the morning and 2 at night with each measurement 10 minutes apart) using correct blood pressure technique and keep a log to take to each doctor appointment with blood pressure cuff. 3. Hyperlipidemia, chronic, present on admission. Stable. -Fasting lipid panel demonstrated good lipid control as above. -Continued home rosuvastatin 10 mg every other day, aspirin 81 mg weekly and Co Q10 100 mg daily. Exam Vital Signs (past 8 hours): - 01/04/20 07:50 01/04/20 07:58 01/04/20 11:01 Temperature 98.1 F Pulse Rate 108 H 112 H 112 H Respiratory Rate 16 Blood Pressure 180/103 H 180/110 H 180/103 H Pulse Oximetry 98 01/04/20 13:05 Temperature 98.0 F Pulse Rate 90 Respiratory Rate 16 Blood Pressure 145/75 H Pulse Oximetry 99 Oxygen Delivery Method Room Air Oxygen Flow Rate 0 Narrative Exam Narrative: General: Older female lying in bed and in no acute distress, appears younger than stated age, well-developed, well-nourished, appropriately interactive. HEENT: Normocephalic, atraumatic. External ears without defect. Pupils equal, round, and reactive to light. Anicteric sclerae, moist conjunctivae, and no lid lag. Oropharynx free of erythema and cobble stoning with moist mucosa. Neck: Supple with full range of motion. No jugular venous distension. No lymphadenopathy or thyromegaly. Cardiovascular: Regular rate and rhythm without murmurs, rubs, or gallops appreciated. No reproducible chest pressure on exam. Pulmonary: Clear to auscultation bilaterally without crackles, wheezes, or rhonchi. Normal respiratory effort with no use of accessory muscles. Abdomen: Soft, bowel sounds present, nontender, nondistended. No hepatosplenomegaly or masses appreciated. Extremities: No clubbing, cyanosis, or edema. Skin: Normal temperature, turgor, and texture; no rash, ulcers, or subcutaneous nodules appreciated. Neurological: Cranial nerves grossly intact. Psychiatric: Normal mood and affect. Alert and oriented to person, place, and time. Objective Labs Result Diagrams: 01/04/20 04:47 01/04/20 04:47 Labs: Laboratory Results - last 24 hr 01/03/20 01/03/20 01/03/20 13:30 14:40 18:10 WBC RBC Hgb Hct MCV MCH MCHC RDW Plt Count Neut % (Auto) Lymph % (Auto) [place] % (Auto) Eos % (Auto) Baso % (Auto) Neut # (Auto) Lymph # (Auto) [place] # (Auto) Eos # (Auto) Baso # (Auto) Sodium Potassium Chloride Carbon Dioxide BUN Creatinine Estimated GFR BUN/Creatinine Ratio Glucose Hemoglobin A1c 5.5 Calcium Troponin I Triglycerides Cholesterol LDL Cholesterol, Calc HDL Cholesterol U Opiates 300ng/mL cut Negative Ur Oxycodone Screen Negative Urine Methadone Screen Negative Ur Barbiturates Screen Negative U Tricyclic Antidepress Negative Ur Phencyclidine Scrn Negative Ur Amphetamines Screen Negative U Methamphetamines Scrn Negative Ur MDMA Scrn (Ecstasy) Negative U Benzodiazepines Scrn Negative Urine Cocaine Screen Negative U Marijuana (THC) Screen Negative COVID-19 PCR Negative 01/03/20 01/04/20 01/04/20 20:48 04:47 04:47 WBC RBC Hgb Hct MCV MCH MCHC RDW Plt Count Neut % (Auto) Lymph % (Auto) [place] % (Auto) Eos % (Auto) Baso % (Auto) Neut # (Auto) Lymph # (Auto) [place] # (Auto) Eos # (Auto) Baso # (Auto) Sodium Potassium Chloride Carbon Dioxide BUN Creatinine Estimated GFR BUN/Creatinine Ratio Glucose Hemoglobin A1c Calcium Troponin I < 0.012 < 0.012 Triglycerides 103 Cholesterol 200 H LDL Cholesterol, Calc 84 HDL Cholesterol 95 H U Opiates 300ng/mL cut Ur Oxycodone Screen Urine Methadone Screen Ur Barbiturates Screen U Tricyclic Antidepress Ur Phencyclidine Scrn Ur Amphetamines Screen U Methamphetamines Scrn Ur MDMA Scrn (Ecstasy) U Benzodiazepines Scrn Urine Cocaine Screen U Marijuana (THC) Screen COVID-19 PCR 01/04/20 01/04/20 04:47 04:47 WBC 6.2 RBC 3.99 L Hgb 13.4 Hct 39.6 MCV 99.4 MCH 33.5 MCHC 33.7 RDW 12.6 Plt Count 270 Neut % (Auto) 63.4 Lymph % (Auto) 20.3 L [place] % (Auto) 10.0 Eos % (Auto) 4.5 H Baso % (Auto) 1.8 Neut # (Auto) 3900 Lymph # (Auto) 1300 [place] # (Auto) 600 Eos # (Auto) 300 Baso # (Auto) 100 Sodium 131 L Potassium 4.0 Chloride 99 Carbon Dioxide 27 BUN 8 Creatinine 0.50 L Estimated GFR > 60.0 BUN/Creatinine Ratio 16.0 Glucose 104 Hemoglobin A1c Calcium 9.1 Troponin I Triglycerides Cholesterol LDL Cholesterol, Calc HDL Cholesterol U Opiates 300ng/mL cut Ur Oxycodone Screen Urine Methadone Screen Ur Barbiturates Screen U Tricyclic Antidepress Ur Phencyclidine Scrn Ur Amphetamines Screen U Methamphetamines Scrn Ur MDMA Scrn (Ecstasy) U Benzodiazepines Scrn Urine Cocaine Screen U Marijuana (THC) Screen COVID-19 PCR Discharge Plan Discharge Plan Patient Disposition: Home Discharge comment: You are being discharged home. You do not have any signs of impending heart attack or heart attack based on EKG, heart monitor, heart enzymes and heart ultrasound (echocardiogram). Your blood pressure has been highly elevated. Continue your home lisinopril 40 mg daily and metoprolol succinate 25 mg daily and in addition you were prescribed amlodipine 10 mg daily which has better controlled your blood pressure. Please try to cut back on salt intake. Please monitor your blood pressure closely and keep a log with 2 measurements in the morning and 2 measurements in the evening (each measurement at least 10 minutes apart) and using correct blood pressure measuring technique which includes: Stationary for 5 minutes before measurements, sitting in a chair with your back supported, feet flat on the ground, blood pressure cuff at the level of your heart and your arm resting on a hard surface. Please bring your blood pressure log and cuff to each doctor's appointment. Please try to limit your amount of stress. Your cholesterol is well controlled. You are not diabetic. Please have a sleep study to assure that you do not have sleep apnea and if present it will need to be treated as this can make high blood pressure hard to control. Please do not take excessive NSAIDs such as ibuprofen or naproxen. Please cut back on alcohol use. You were prescribed nitroglycerin for chest pressure. Please follow-up with your primary care physician, Dr. Barillas, in the next 1 week regarding your hospitalization and referral for stress test in the next 1-2 weeks and sleep study. Discharge orders & Medications Prescriptions: New amlodipine [Norvasc] 5 mg Tablet 10 mg PO DAILY Qty: 30 RF: 0 nitroglycerin [Nitrostat] 0.4 mg Tablet, Sublingual 0.4 mg sublingual [id number] PRN (Reason: Chest Pain) Qty: 10 RF: 0 Continued latanoprost 0.005 % Drops 1 drp EYE-BOTH BEDTIME RF: 0 lisinopril 20 mg Tablet 40 mg PO DAILY RF: 0 aspirin 81 mg Tablet,Delayed Release (Dr/Ec) 81 mg PO WEEKLY RF: 0 metronidazole 0.75 % Cream 1 applic TOPICAL BEDTIME RF: 0 metoprolol succinate [Toprol XL] 25 mg Tablet Extended Release 24 Hr 25 mg PO DAILY RF: 0 cholecalciferol (vitamin D3) [Vitamin D3] 25 mcg (1,000 unit) Capsule 25 mcg PO DAILY RF: 0 rosuvastatin 10 mg Tablet 10 mg PO Q OTHER DAY RF: 0 Centrum Silver 0.4-300-250 mg-mcg-mcg Tablet 1 tab PO DAILY RF: 0 coQ10 (ubiquinol) 100 mg Capsule 100 mg PO DAILY RF: 0 psyllium husk [Metamucil] 0.4 gram Capsule 0.8 g PO DAILY RF: 0 Follow up/Referrals: Keke Barillas DO [Non-Staff] - 1 Week Diet/Activity/Treatments Diet: Low-fat, Low-sodium and Low-cholesterol Diet comment: Low-sodium less than 2 g or 2000 mg a day Activity: Activity as tolerated Visit Report/Discharge Packet Instructions: Alcohol and Stress: There are Safer Ways to [place], The DASH Diet, Treatments for High Blood Pressure: More Than Just Taking a Pill, Cardiac Stress Test, Essential Hypertension, Lifestyle Habits May Lower Risk of Hypertension in Women, DI for Chest Pain, Amlodipine, Nitroglycerin (By mouth) Visit Report Forms: Patient Portal/API, Stroke Signs & Symptoms Discharge Data Attending Provider: Erendira Vivar Admit Date/Time: 01/03/20 16:34
--- NOTE | 2020-01-04 15:48 | PC.NURSE ---
Pt HL & tele discontinued. Pt instructions given w/apparent under standing Pt escorted to waiting vehicle by staff. D/C in stable condition
--- NOTE | 2020-01-04 16:33 | CM.DANOTE ---
Discharge Planning/Care Management Met with pt during Team Bedside Rounds. Dr. Vivar has place a d/c order and stated that pt could go home if ECHO was OK and BP was stable. A check in now shows that pt left for home this afternoon. No d/c concerns were noted. Advanced directive, confirm from FAMILY Start: 01/03/20 17:14 Freq: Q24H Status: Active Protocol: Document 01/03/20 17:14 GMP (Rec: 01/03/20 17:24 GMP [id number]) Advance Directive, confirm on record Time 17:23 Person contacted pt Copy received No
== END 2020-01-04 15:40 | disposition home or self-care (01) ==
LOC: ED 16:25 → AC 16:34
PROVIDERS: Nurse Practitioner Family; Admitting Provider Internal Medicine; Emergency Provider Emergency Medicine; Referring Provider Emergency Medicine; Visit Provider Internal Medicine
DX: I16.0 Hypertensive urgency (principal); R07.9 Chest pain, unspecified; I10 Essential (primary) hypertension; E78.5 Hyperlipidemia, unspecified; Z11.59 Encounter for screening for other viral diseases
CPT/HCPCS: 36415; 71045; 80048; 80053; 80061; 80305; 82550; 82553; 83036; 83690; 84484; 85025; 85610; 85730; 87635; 93005; 93306; 96372; 96374; 99283; 99284; G0378; J1650

== ENCOUNTER → 2020-02-01 11:40 | Outpatient (CLI) | payer MEDICARE, OTHER, SELFPAY ==
[2020-01-03 17:07] VITALS: BMI 23.6
[2020-02-02 13:51] LABS: COVID19 Sendout Not Detected (Not Detect)
== END ==
PROVIDERS: Visit Provider Family Medicine
DX: Z11.59 Encounter for screening for other viral diseases (principal)
CPT/HCPCS: 87635

== ENCOUNTER → 2020-02-04 09:28 | Outpatient (CLI) | payer MEDICARE, OTHER, SELFPAY ==
[2020-01-03 17:07] VITALS: BMI 23.6
--- NOTE | 2020-02-04 18:20 | DI.NM.S_ITS ---
DATE OF SERVICE: 02/04/2020 PROCEDURE PERFORMED: Exercise treadmill stress and rest myocardial perfusion imaging with gating to assess ejection fraction and regional wall motion. ORDERING PROVIDER: Dr. Keke Barillas. INDICATIONS: The patient is a 74-year-old female with exertional chest discomfort and dyspnea. EXERCISE TREADMILL TESTING: The patient was able to exercise for 10 minute on a standard Bridger protocol suggesting good exercise capacity with an YASH of -11%. She had a normal heart rate and blood pressure response, achieving a maximum heart rate of 151 bpm (103% of her predicted maximum). She had no chest discomfort. Her resting ECG is normal and there are no significant ST- segment shifts with exercise. She had occasional PACs and PVCs, rarely in couplets, but no other complex ectopy. At 5 minute of exercise at a heart rate of 148 BPM, 24.8 millicuries of technetium-99m Myoview was injected and the patient was imaged 30 minutes later using a gated SPECT acquisition protocol. The prior day, while at rest, she had been injected with 10.6 millicuries of technetium-99m Myoview and was imaged 30 minutes later, again using a gated SPECT acquisition protocol. FINDINGS: 1. Raw data: There is good myocardial tracer uptake. TID ratio was normal at 0.29 with a normal TID ratio of 0.70. 2. Quantitated gated SPECT: Post-stress ejection fraction is estimated at 83% without any focal wall motion abnormality. Resting ejection fraction is estimated at 85% with an end-diastolic volume of 101 mL. 3. Myocardial perfusion imaging: Post-stress supine images shows a normal myocardial perfusion pattern without any perfusion defects, supported by normal perfusion imaging in the prone position. The resting images show a similar perfusion pattern without any evidence of improvement. IMPRESSION: 1. Normal myocardial perfusion study. 2. No evidence of myocardial ischemia or previous myocardial infarction. 3. Normal left ventricular systolic function without any focal wall motion abnormality. 4. Very good exercise capacity without any angina or ECG evidence of ischemia. She had occasional PACs and PVCs, rarely in couplets. Joy Paniagua - ABDI/gracy/braulio doc#: [id number]/job#: [id number] dd: 02/04/2020 17:26:00 dt: 02/04/2020 17:58:00 DICTATING MD/COPIES TO: Yvan Hernandez MD; Keke Barillas DO COPIES MNE: JANESSA;
== END ==
PROVIDERS: PCP Family Medicine; Referring Provider Family Medicine; Visit Provider Family Medicine
DX: R07.89 Other chest pain; R06.00 Dyspnea, unspecified; I16.0 Hypertensive urgency
CPT/HCPCS: 78452; 93017; A9502

== ENCOUNTER 2020-09-14 18:02 | Inpatient (IN) | payer MEDICARE, OTHER, SELFPAY ==
[2020-01-03 17:07] VITALS: BMI 23.6
[2020-09-14 18:10] VITALS: BP 180/88; PULSE 116; RESP 20; TEMP 38.3; O2SAT 97; BMI 23.8
--- NOTE | 2020-09-14 18:44 | DI.CT.S_ITS ---
PROCEDURE: CT ABDOMEN PELVIS W CON INDICATIONS: abdominal pain, right side, uncertain etiology, ? sepsis TECHNIQUE: After the administration of intravenous contrast, 5 mm thick sections acquired from the diaphragm to the symphysis. 5 mm coronal and sagittal reformats were acquired. For radiation dose reduction, the following was used: automated exposure control, adjustment of mA and/or kV according to patient size. COMPARISON: None. FINDINGS: Image quality: Excellent. ABDOMEN: Lung bases: Lung bases are clear. Heart size is normal. Solid organs: Liver is normal in size and enhancement. Gallbladder is unremarkable. Biliary system is non dilated. Pancreas enhances normally. Spleen is normal in size and enhancement. No adrenal nodules. Kidneys demonstrate normal size and enhancement, without hydronephrosis. Peritoneum and bowel: Markedly dilated fluid-filled appendix with fecaliths in the appendix. There is mild adjacent fluid. Nodes and vessels: No retroperitoneal or mesenteric adenopathy by size criteria. Aorta and inferior vena cava are normal in size. Miscellaneous: No ventral hernias. PELVIS: Genitourinary: Diffuse bladder wall thickening. Miscellaneous: No inguinal hernias or adenopathy. Remote hysterectomy. Bones: No suspicious bony lesions. No vertebral body compression fractures. 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 Bilateral hip degenerative change, right greater than left. IMPRESSION: 1. Acute appendicitis with markedly dilated appendix and subjacent fluid. Cannot exclude rupture. 2. Diffuse bladder wall thickening may indicate cystitis. Nonemergent findings include lower thoracic canal stenosis, as well as bilateral hip degenerative change. Comment: Findings were discussed with Dr. Vega on 09/14/2020 at 1758 hours Dictated by: Mode Sarmiento M.D. on 09/14/2020 at 19:52 Approved by: Mode Sarmiento M.D. on 09/14/2020 at 19:58
[2020-09-14 18:45] LABS: Add Manual Diff / Slide Review NO; Basophils Absolute Auto 100 /uL (0-100); Basophils Percent Auto 0.5 % (0-2); Eosinophils Absolute Auto 0 /uL (0-450); Eosinophils Percent Auto 0.1 % (2-4); Hematocrit 38.5 % (36-46); Hemoglobin 13.3 g/dL (12.0-16.0); Lymphocytes Absolute Auto 600 /uL (1100-4500); Lymphocytes Percent Auto 3.7 % (25-40); Mean Corpuscular HGB Conc 34.7 % (30-36); Mean Corpuscular Hemoglobin 34.3 PG (26-34); Mean Corpuscular Volume 98.9 fL (80-100); Monocytes Absolute Auto 1200 /uL (0-900); Monocytes Percent Auto 6.7 % (3-14); Neutrophils Absolute Auto 15200 /uL (1500-7000); Platelet Count 262 X10^3/uL (150-400); Red Blood Cell Count 3.89 X10^6/uL (4.0-5.2); Red Cell Distribution Width 13.2 % (11.6-14.8); White Blood Cell Count 17.1 X10^3/uL (4.5-11.0)
[2020-09-14 18:50] LABS: Prothrombin Time 11.6 SECONDS (10.1-12.7)
[2020-09-14 18:53] LABS: PTT Partial Thromboplastin Tim 27 SECONDS (26.4-36.2)
[2020-09-14 19:13] LABS: Alanine Aminotransferase 43 IU/L (<35); Albumin 4.5 g/dL (3.5-5.0); Albumin Globulin Ratio 1.6 (1.0-2.8); Alkaline Phosphatase 83 U/L (38-126); Aspartate Aminotransferase 51 IU/L (14-36); BUN Creatinine Ratio 18.2 (6-22); Bilirubin Total 0.8 mg/dL (0.2-1.3); Blood Urea Nitrogen 8 mg/dL (7-17); Calcium 9.6 mg/dL (8.4-10.2); Carbon Dioxide 25 mmol/L (22-32); Chloride 95 mmol/L (98-107); Estimated Glomerular Filt Rate > 60.0 mL/min (>60); Globulin 2.8 g/dL (1.7-4.1); Glucose 153 mg/dL (80-110); HEMOLYSIS < 15 (0-50); Lipase 44 U/L (23-300); Potassium 4.2 mmol/L (3.4-5.1); Sodium 129 mmol/L (137-145); Total Protein 7.3 g/dL (6.3-8.2)
[2020-09-14 19:16] LABS: Lactate (Lactic Acid) 0.8 mmol/L (0.7-2.1)
[2020-09-14] MEDS: SODIUM CHLORIDE 0.9% 1,000 ML 1000 ML IV (19:20)
[2020-09-14] MEDS: ONDANSETRON 4 MG/2 ML INJ IV (19:49)
[2020-09-14] MEDS: metroNIDAZOLE 500 MG/100 ML PIGGYBACK 100 MG IV (19:49)
--- NOTE | 2020-09-14 19:58 | ED_ITS ---
HPI - Abdominal Pain General Chief Complaint: Abdominal Pain Stated Complaint: bloated stomach, pain Time Seen by Provider: 09/14/20 18:43 Source: patient Mode of arrival: Ambulatory Limitations: no limitations History of Present Illness HPI narrative: 74-year-old woman with a history of hypertension and hyperlipide jannette presents with abdominal pain for 24 hours. She 1st noted some bloating yesterday and felt to was related to gas. Was having increasing pain today she went to the walk-in clinic where they did x-rays and were not able to confirm constipation as a source of her pain so they recommended further evaluation. She was feeling slightly better so she initially went home and then is the pain continued to increase and she noted a temperature up to 101? she comes into the emergency room for further evaluation. She describes no vomiting, diarrhea or constipation. Significant abdominal pain on through the mid abdomen but not localizing. No chest pain, dyspnea, palpitation. No focal neurologic a bnormalities appreciated Related Data Home Medications Medication Instructions Recorded Confirmed Centrum Silver 1 tab PO DAILY 01/03/20 01/03/20 aspirin 81 mg PO WEEKLY 01/03/20 01/03/20 cholecalciferol (vitamin D3) 25 mcg PO DAILY 01/03/20 01/03/20 [Vitamin D3] coQ10 (ubiquinol) 100 mg PO DAILY 01/03/20 01/03/20 latanoprost 1 drp EYE-BOTH BEDTIME 01/03/20 01/03/20 lisinopril 40 mg PO DAILY 01/03/20 01/03/20 metoprolol succinate [Toprol XL] 25 mg PO DAILY 01/03/20 01/03/20 metronidazole 1 applic TOPICAL BEDTIME 01/03/20 01/03/20 psyllium husk [Metamucil] 0.8 g PO DAILY 01/03/20 01/03/20 rosuvastatin 10 mg PO Q OTHER DAY 01/03/20 01/03/20 Previous Rx's Medication Instructions Recorded amlodipine [Norvasc] 10 mg PO DAILY #30 tab 01/04/20 nitroglycerin [Nitrostat] 0.4 mg SUBLINGUAL [id number] PRN #10 01/04/20 tab Allergies Allergy/AdvReac Type Severity Reaction Status Date / Time codeine Allergy Verified 02/01/20 11:39 Review of Systems Review of Systems Narrative: Remainder of complete review of systems is otherwise unremarkable except for that included in the HPI. Patient History Medical History Essential hypertension Hyperlipidemia Surgical History History of hysterectomy History of repair of rotator cuff Family History Mother Esophageal cancer Tobacco dependence Father Lung cancer Tobacco dependence Social History household members: spouse Smoking Status: Never smoker Smoking Status: Never smoker alcohol intake frequency: 0-2 drinks per day Substance Use Type: does not use Exam Narrative Exam Narrative: General: Healthy appearing, in no acute distress. Able to give a complete and coherent history. Well-nourished well-developed HEENT: Moist mucous membranes, normal sclera with reactive pupils, Neck: supple Respiratory: Lungs are clear to auscultation, no wheezing no rales no rhonchi. Full and symmetrical air movement Cardiac: Regular rate and rhythm no murmurs no bruits Abdomen: Soft, significantly tender through the mid abdomen/umbilical area with mild tenderness into both lower quadrants left greater than right. Good bowel tones, no flank pain Skin: Warm and dry, no rashes Neurologic: Grossly neurologically intact with no obvious asymmetries or abnormalities Extremities: No trauma, well perfused Psych: Cooperative, appropriate insight and affect Initial Vital Signs Initial Vital Signs: Vital Signs Temperature 101.0 F H 09/14/20 18:10 Pulse Rate 116 H 09/14/20 18:10 Respiratory Rate 20 09/14/20 18:10 Blood Pressure 180/88 H 09/14/20 18:10 Pulse Oximetry 97 09/14/20 18:10 Course Orders Ordered: Acetaminophen (Acetaminophen 325 Mg Tablet) 975 mg PO Q6HR BETTY Last Admin: 09/15/20 06:14 Dose: Not Given Documented by: Admin: 09/15/20 01:01 Dose: 975 mg Documented by: ANDREW Hydromorphone HCl (Hydromorphone 0.5 Mg Inj) 0.5 mg IV Q15MIN PRN PRN Reason: Pain, Sodium Chloride (Normal Saline 0.9%) 1,000 mls @ 150 mls/hr IV CONT BETTY Last Admin: 09/15/20 04:39 Dose: 150 mls/hr Documented by: Infusion: 09/15/20 03:57 Dose: 150 mls/hr Documented by: Admin: 09/14/20 21:16 Dose: 150 mls/hr Documented by: FARHAT Discontinued Medications Sodium Chloride (Normal Saline 0.9%) 1,000 mls @ 1,000 mls/hr IV BOLUS ONE Stop: 09/14/20 19:42 Last Infusion: 09/14/20 20:26 Dose: 0 mls/hr Documented by: Admin: 09/14/20 19:20 Dose: 1,000 mls/hr Documented by: STEVEN Piperacillin Sod/Tazobactam (Sod 4.5 gm/ Sodium Chloride) 100 mls @ 25 mls/hr IV NOW ONE Stop: 09/14/20 19:28 Last Admin: 09/14/20 21:17 Dose: Not Given Documented by: FARHAT Metronidazole (Flagyl) 500 mg in 100 mls @ 100 mls/hr IV NOW ONE Stop: 09/14/20 20:26 Last Infusion: 09/14/20 20:26 Dose: 0 mls/hr Documented by: Admin: 09/14/20 19:49 Dose: 100 mls/hr Documented by: SERGIO Ondansetron HCl (Ondansetron 4 Mg/2 Ml Inj) 4 mg IV NOW ONE Stop: 09/14/20 18:44 Last Admin: 09/14/20 19:49 Dose: 4 mg Documented by: SERGIO Vital Signs Vital signs: Vital Signs - 8 hr 09/14/20 18:10 Temperature 101.0 F H Pulse Rate 116 H Respiratory Rate 20 Blood Pressure 180/88 H Pulse Oximetry 97 MDM - Abdominal Pain Medical Records Attestation: I reviewed the patient's medical records. Lab Data Attestation: I reviewed the patient's lab results. Result diagrams: 09/14/20 18:32 09/14/20 18:32 Labs: Lab Results 09/14/20 09/14/20 09/14/20 Range/Units 18:32 18:32 18:32 WBC 17.1 H (4.5-11.0) X10^3/uL RBC 3.89 L (4.0-5.2) X10^6/uL Hgb 13.3 (12.0-16.0) g/dL Hct 38.5 (36-46) % MCV 98.9 (80-100) fL MCH 34.3 H (26-34) PG MCHC 34.7 (30-36) % RDW 13.2 (11.6-14.8) % Plt Count 262 (150-400) X10^3/uL Neut % (Auto) 89.0 H (50-75) % Lymph % (Auto) 3.7 L (25-40) % [place] % (Auto) 6.7 (3-14) % Eos % (Auto) 0.1 L (2-4) % Baso % (Auto) 0.5 (0-2) % Neut # (Auto) 06154 H (1426-2227) /uL Lymph # (Auto) 600 L (1101-5854) /uL [place] # (Auto) 1200 H (0-900) /uL Eos # (Auto) 0 (0-450) /uL Baso # (Auto) 100 (0-100) /uL PT 11.6 (10.1-12.7) SECONDS INR 1.0 (0.9-1.3) APTT 27 (26.4-36.2) SECONDS Sodium 129 L (137-145) mmol/L Potassium 4.2 (3.4-5.1) mmol/L Chloride 95 L (98-107) mmol/L Carbon Dioxide 25 (22-32) mmol/L BUN 8 (7-17) mg/dL Creatinine 0.44 L (0.52-1.04) mg/dL Estimated GFR > 60.0 (>60) mL/min BUN/Creatinine Ratio 18.2 (6-22) Glucose 153 H (80-110) mg/dL Lactate (0.7-2.1) mmol/L Calcium 9.6 (8.4-10.2) mg/dL Total Bilirubin 0.8 (0.2-1.3) mg/dL AST 51 H (14-36) IU/L ALT 43 H (<35) IU/L Alkaline Phosphatase 83 (38-126) U/L Total Protein 7.3 (6.3-8.2) g/dL Albumin 4.5 (3.5-5.0) g/dL Globulin 2.8 (1.7-4.1) g/dL Albumin/Globulin Ratio 1.6 (1.0-2.8) Lipase 44 (23-300) U/L SARS-CoV-2 (PCR) (Negative) 09/14/20 09/14/20 Range/Units 18:32 19:55 WBC (4.5-11.0) X10^3/uL RBC (4.0-5.2) X10^6/uL Hgb (12.0-16.0) g/dL Hct (36-46) % MCV (80-100) fL MCH (26-34) PG MCHC (30-36) % RDW (11.6-14.8) % Plt Count (150-400) X10^3/uL Neut % (Auto) (50-75) % Lymph % (Auto) (25-40) % [place] % (Auto) (3-14) % Eos % (Auto) (2-4) % Baso % (Auto) (0-2) % Neut # (Auto) (0848-1395) /uL Lymph # (Auto) (3090-8829) /uL [place] # (Auto) (0-900) /uL Eos # (Auto) (0-450) /uL Baso # (Auto) (0-100) /uL PT (10.1-12.7) SECONDS INR (0.9-1.3) APTT (26.4-36.2) SECONDS Sodium (137-145) mmol/L Potassium (3.4-5.1) mmol/L Chloride (98-107) mmol/L Carbon Dioxide (22-32) mmol/L BUN (7-17) mg/dL Creatinine (0.52-1.04) mg/dL Estimated GFR (>60) mL/min BUN/Creatinine Ratio (6-22) Glucose (80-110) mg/dL Lactate 0.8 (0.7-2.1) mmol/L Calcium (8.4-10.2) mg/dL Total Bilirubin (0.2-1.3) mg/dL AST (14-36) IU/L ALT (<35) IU/L Alkaline Phosphatase (38-126) U/L Total Protein (6.3-8.2) g/dL Albumin (3.5-5.0) g/dL Globulin (1.7-4.1) g/dL Albumin/Globulin Ratio (1.0-2.8) Lipase (23-300) U/L SARS-CoV-2 (PCR) Negative (Negative) Imaging Data CT scan - abdomen/pelvis: Radiologist's Impression: Discussion with Dr. Sarmiento, radiologist 7:55pm Severe appendicitis with concern for imminent rupture FINDINGS: Image quality: Excellent. ABDOMEN: Lung bases: Lung bases are clear. Heart size is normal. Solid organs: Liver is normal in size and enhancement. Gallbladder is unremarkable. Biliary system is non dilated. Pancreas enhances normally. Spleen is normal in size and enhancement. No adrenal nodules. Kidneys demonstrate normal size and enhancement, without hydronephrosis. Peritoneum and bowel: Markedly dilated fluid-filled appendix with fecaliths in the appendix. There is mild adjacent fluid. Nodes and vessels: No retroperitoneal or mesenteric adenopathy by size criteria. Aorta and inferior vena cava are normal in size. Miscellaneous: No ventral hernias. PELVIS: Genitourinary: Diffuse bladder wall thickening. Miscellaneous: No inguinal hernias or adenopathy. Remote hysterectomy. Bones: No suspicious bony lesions. No vertebral body compression fractures. 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 Bilateral hip degenerative change, right greater than left. IMPRESSION: 1. Acute appendicitis with markedly dilated appendix and subjacent fluid. Cannot exclude rupture. 2. Diffuse bladder wall thickening may indicate cystitis. Nonemergent findings include lower thoracic canal stenosis, as well as bilateral hip degenerative change. Comment: Findings were discussed with Dr. Vega on 09/14/2020 at 1758 hours Dictated by: Mode Sarmiento M.D. on 09/14/2020 at 19:52 Approved by: Mode Sarmiento M.D. on 09/14/2020 at 19:58 ECG Data Attestation: I personally reviewed and interpreted this ECG as follows: Interpretation: Sinus tachycardia at 100 Normal intervals, normal axis No acute ischemic changes MDM Narrative Medical decision making narrative: 74-year-old woman with 24 hours of increasing mid abdominal pain with CT scan confirmed appendicitis. Elevated white count but no evidence of sepsis with normal lactic acid and no evidence of hypotension. 8pm Dr Keenan recommends admission to his service, IV antibiotics overnight with anticipation of surgical intervention 1st thing in the morning. At this time, heart rate is down temperature is down. Lactic acid is 0.8, she has been started on Zosyn and Flagyl and will continue with Zosyn. Findings are reviewed with the patient. She will be admitted and remain NPO overnight. Discharge Plan Departure Patient Disposition: Admitted As Inpatient Clinical Impression: Acute appendicitis Qualifiers: Acute appendicitis type: with generalized peritonitis Appendicitis gangrene presence: unspecified whether gangrene present Appendicitis perforation presence: unspecified whether perforation present Appendicitis abscess presence: unspecified whether abscess present Qualified Code(s): K35.20 - Acute appendicitis with generalized peritonitis, without abscess Admit Date/Time: 09/14/20 20:05 Admit Provider: Dionte Keenan
[2020-09-14 19:59] VITALS: BP 176/79; PULSE 98; O2SAT 97
[2020-09-14 20:00] VITALS: BP 169/78; PULSE 95; O2SAT 97
[2020-09-14 20:45] VITALS: BMI 23.8
[2020-09-14 21:04] LABS: COVID19 - ADMIT (NP swab/PCR) Negative (Negative)
[2020-09-14] MEDS: SODIUM CHLORIDE 0.9% 1,000 ML 150 ML IV (21:16)
[2020-09-14 21:24] VITALS: BP 156/77; PULSE 101; RESP 16; TEMP 36.9; O2SAT 98
[2020-09-15] VITALS (20 sets, daily range): BP systolic 119–163; BP diastolic 52–87; PULSE 74–135; RESP 14–18; TEMP 36.4–37.7; O2SAT 94–98; BMI 26.2
--- NOTE | 2020-09-15 | PATH_ITS ---
[facility] Accession Number: [id number] . 01 Material submitted: . appendix - APPENDIX . 02 Diagnosis: Appendix, Appendectomy: Acute suppurative appendicitis with perforation and serositis. Negative for dysplasia and malignancy. [facility] 09/20/2020 1624 Local . 02 Electronically signed: . Mallory Diallo MD, Pathologist NPI- [id number] . 01 Gross description: . The specimen is received in formalin, labeled appendix and consists of a 5.5 cm in length by 1.5 cm in diameter vermiform appendix with attached miranda-yellow lobulated mesoappendix measuring 5.2 x 1.5 x 1.0 cm. The serosa is pink-purple with adherent miranda purulent exudate, a miranda-pink to red-brown hemorrhagic mucosa, and a lumen measuring up to 1.0 cm in diameter. [employer] Supervisor sections are submitted to include the en face margin (blue), central cross-sections and bisected tip in cassettes A1-A2. (EA:[id number]) /MRV 09/16/2020 1005 Local . 02 Pathologist provided ICD-10: K35.80 . 02 CPT . 067304 Performed at: 01 [facility] [address], [place], [place] [id number] MD Mino Horne MD Phone: [phone] Performed at: 02 [facility] [address] [place], [place] [id number] MD Mallory Diallo MD Phone: [phone]
[2020-09-15] MEDS: ACETAMINOPHEN 325 MG TABLET 975 MG PO ×2 (01:01→19:26)
[2020-09-15] MEDS: SODIUM CHLORIDE 0.9% 1,000 ML 150 ML IV ×3 (04:39→21:50)
[2020-09-15] MEDS: PIPERACILLIN/TAZO 3.375 GM in SODIUM CHLORIDE 0.9% 100 ML 25 ML IV ×2 (07:58→17:36)
--- NOTE | 2020-09-15 09:39 | PM.HP.1 ---
History of Present Illness History of Present Illness Date Patient Seen: 09/15/20 Time Patient Seen: 09:42 Chief complaint: bloated stomach, pain Narrative: 74-year-old healthy woman developed abdominal pain with course of yesterday. She was evaluated in the walk-in clinic went home and then return to the emergency room last night for worsening abdominal pain. No associated nausea vomiting diarrhea or dysuria. In the emergency room laboratory studies were significant for a white blood cell count of 17. CT abdomen pelvis demonstrates acute appendicitis with adjacent of for fluid no abscess. She was admitted to the hospital has remained NPO with IV Zosyn and pain control overnight. This morning she feels significantly better but continues to have right lower and mid lower abdominal pain. Prior abdominal surgery significant for hysterectomy. Patient History Medical History Essential hypertension Hyperlipidemia Surgical History History of hysterectomy History of repair of rotator cuff Family & Social History Family History Mother Esophageal cancer Tobacco dependence Father Lung cancer Tobacco dependence Social History: household members spouse Safety & Behavioral: Feels Safe in Current Yes Environment Been Physically Hurt or No Threatened By a Person Suicidal Ideation Description None Suicide Plan Description No Plan Tobacco & Substance use: Smoking Status Never smoker alcohol intake frequency 0-2 drinks per day Substance Use Type does not use Meds Home Medications and Allergies Home Medications Medication Instructions Recorded Confirmed Type Centrum Silver 1 tab PO DAILY 01/03/20 09/15/20 History aspirin 81 mg PO WEEKLY 01/03/20 09/15/20 History cholecalciferol (vitamin D3) 25 mcg PO DAILY 01/03/20 09/15/20 History [Vitamin D3] coQ10 (ubiquinol) 100 mg PO DAILY 01/03/20 09/15/20 History latanoprost 1 drp EYE-BOTH BEDTIME 01/03/20 09/15/20 History lisinopril 40 mg PO DAILY 01/03/20 09/15/20 History metoprolol succinate [Toprol XL] 25 mg PO DAILY 01/03/20 09/15/20 History metronidazole 1 applic TOPICAL BEDTIME 01/03/20 09/15/20 History psyllium husk [Metamucil] 0.8 g PO DAILY 01/03/20 09/15/20 History rosuvastatin 10 mg PO DAILY 01/03/20 09/15/20 History nitroglycerin [Nitrostat] 0.4 mg SUBLINGUAL [id number] PRN #10 01/04/20 09/15/20 Rx tab amlodipine [Norvasc] 5 mg PO DAILY 09/15/20 09/15/20 History Allergies Allergy/AdvReac Type Severity Reaction Status Date / Time codeine Allergy Verified 02/01/20 11:39 Review of Systems Review of Systems ROS: Yes All systems reviewed with the patient and are negative except as otherwise documented Exam Vital Signs (past 8 hours): - 09/15/20 04:56 09/15/20 08:00 09/15/20 09:33 Temperature 98.3 F 96.9 F L Pulse Rate 77 86 Respiratory Rate 18 15 Blood Pressure 131/63 154/86 H Pulse Oximetry 97 97 96 Oxygen Delivery Method Room Air Oxygen Flow Rate 0 Narrative Exam Narrative: GENERAL-well developed adult, no acute distress HEENT-no scleral icterus, hearing intact NECK-no JVD, trachea midline CVS- regular rate, no peripheral edema RESP-unlabored respiratory effort, no audible wheezing GI-focal peritonitis right lower quadrant. MSK-no cyanosis or clubbing, extremities without deformity SKIN-warm, dry NEURO-alert and oriented, no focal deficits PYSCH-Appropriate mood and affect Objective Labs Result Diagrams: 09/14/20 18:32 09/14/20 18:32 Labs: Laboratory Results - last 24 hr 09/14/20 09/14/20 09/14/20 18:32 18:32 18:32 WBC 17.1 H RBC 3.89 L Hgb 13.3 Hct 38.5 MCV 98.9 MCH 34.3 H MCHC 34.7 RDW 13.2 Plt Count 262 Neut % (Auto) 89.0 H Lymph % (Auto) 3.7 L [place] % (Auto) 6.7 Eos % (Auto) 0.1 L Baso % (Auto) 0.5 Neut # (Auto) 00413 H Lymph # (Auto) 600 L [place] # (Auto) 1200 H Eos # (Auto) 0 Baso # (Auto) 100 PT 11.6 INR 1.0 APTT 27 Sodium 129 L Potassium 4.2 Chloride 95 L Carbon Dioxide 25 BUN 8 Creatinine 0.44 L Estimated GFR > 60.0 BUN/Creatinine Ratio 18.2 Glucose 153 H Lactate Calcium 9.6 Total Bilirubin 0.8 AST 51 H ALT 43 H Alkaline Phosphatase 83 Total Protein 7.3 Albumin 4.5 Globulin 2.8 Albumin/Globulin Ratio 1.6 Lipase 44 SARS-CoV-2 (PCR) 09/14/20 09/14/20 18:32 19:55 WBC RBC Hgb Hct MCV MCH MCHC RDW Plt Count Neut % (Auto) Lymph % (Auto) [place] % (Auto) Eos % (Auto) Baso % (Auto) Neut # (Auto) Lymph # (Auto) [place] # (Auto) Eos # (Auto) Baso # (Auto) PT INR APTT Sodium Potassium Chloride Carbon Dioxide BUN Creatinine Estimated GFR BUN/Creatinine Ratio Glucose Lactate 0.8 Calcium Total Bilirubin AST ALT Alkaline Phosphatase Total Protein Albumin Globulin Albumin/Globulin Ratio Lipase SARS-CoV-2 (PCR) Negative Assessment & Plan Assessment and plan (1) Acute appendicitis: Qualifiers: Acute appendicitis type: with generalized peritonitis Appendicitis abscess presence: unspecified whether abscess present Appendicitis gangrene presence: unspecified whether gangrene present Appendicitis perforation presence: unspecified whether perforation present Qualified Code(s): K35.20 - Acute appendicitis with generalized peritonitis, without abscess Status: Acute Assessment & Plan narrative: 74-year-old female with acute appendicitis. WBC 17 CT demonstrates acute appendicitis with free fluid no abscess. -laparoscopic appendectomy today -Zosyn -NPO and IV fluid -SCDs -hospital admission I reviewed the CT findings with the patient and explained to her that there is a significant possibility that she has ruptured appendicitis. We discussed both operative and non operative management of acute appendicitis. Recommended that we proceed to the operating room for laparoscopic appendectomy. Technical details of the procedure were discussed with the patient. Operative risks including bleeding, infection, damage to surrounding structures, conversion to open were discussed. Her questions have been answered and she is in agreement with this plan. Quality VTE Deep Vein Thrombosis/Pulmonary Embolism Present on Admission: No
[2020-09-15] MEDS: LORazepam 2 MG/ML INJ 0.5 MG IV ×2 (10:00→15:49)
--- NOTE | 2020-09-15 10:41 | PC.NURSE ---
Addendum entered by Santa Howard R.N. 09/15/20 12:41: Pt back to room 216 at 1200 - surgery pushed back. Connected back to NS 150 ml/hr. Denies pain at this time. Addendum entered by Santa Howard R.N. 09/15/20 11:52: Patient to surgery at 1150 via bed. Zosyn infused. Report givven to Pinky RN, chart with pt and updated. Original Note: Day Shift Note Pt alert and oriented x3. Denies pain to abdomen although does report tenderness on palpation. Declines pain meds at this time. IV abx and IVF infusing. NPO. Dr. Keenan in room this AM and consent signed for surgery and on chart. Pt reports anxiety concerning upcoming surgery, o.5 mg IV Ativan administered with good result. Pt resting comfortably in bed. Call light within reach, using appropriately to make needs known.
[2020-09-15] MEDS: LACTATED RINGERS 1,000 ML 42 ML IV (11:58)
--- NOTE | 2020-09-15 16:35 | PC.NURSE ---
Patient escorted to OR via bed with OR nurses. IV fluids stopped, patient no s/s of distress.
--- NOTE | 2020-09-15 16:39 | PC.NURSE ---
RN notified PACU nurses of 1515 Zosyn not given.
--- NOTE | 2020-09-15 16:44 | SUR.HOLD ---
~1215 Surgery order was changed, patient was returned to her room. LR was disconnected prior to transport and reconnected at 1640. HR elevated, patient put on monitor. She is known to have tachycardia and hasn't taken her meds/BB yesterday. Denies pain/nausea.
--- NOTE | 2020-09-15 17:45 | SUR.OPER ---
Supine on padded OR bed, head on pillow, arm padded and tucked at side, legs uncrossed, safety belt at thigh, tape over blanket over lower legs .
[2020-09-15] MEDS: BUPIVACAINE 0.25% (PF) VIAL 30 ML INJ (17:55)
--- NOTE | 2020-09-15 18:36 | PM.OP.1 ---
Operative Date/Time/Diagnoses Date of procedure: 09/15/20 Time of procedure: 18:40 Pre-op diagnosis: Acute appendicitis Post-op diagnosis: other (Perforated appendicitis) Procedure & Clinicians Procedure: Laparoscopic appendectomy Same procedure as scheduled: Yes Indications: Acute appendicitis Surgeon: Dionte Keenan Operative Notes Findings: Necrotic midportion of the appendix with kwasi perforation purulent fluid within the pelvis Specimen(s): other (Appendix) Estimated Blood Loss (mL): 20 Procedure in detail: Patient was brought to the operating room placed supine on the table. Bilateral lower extremity compression devices were applied. Anesthesia was induced and they intubated with an endotracheal tube. They received 3.375 g of Zosyn prior to skin incision. The left arm was tucked and appropriately padded. They were prepped and draped in sterile fashion. Time-out was performed. An infraumbilical incision was made the umbilical stalk was grasped and elevated and incision was made and the abdomen was entered atraumatically. A 12 mm balloon trocar was then placed through the incision and pneumoperitoneum of 14 mm Hg was established. The scope was then inserted and the abdomen inspected, there was no evidence of injury upon entry. Two 5 mm ports were placed under direct visualization, one in the left lower quadrant and second in the lower midline. A thorough laparoscopic evaluation was performed inspecting all four quadrants. The patient was then tilted right side up. The small bowel was then swept to the upper aspect of the abdomen. The tenie were followed to the base of the cecum where the appendix was identified. There was purulence fluid within the pelvis. The appendix was within the early formation of an abscess cavity in the right lower quadrant. The appendix was mobilized towards the midline the midportion of the appendix was necrotic and frankly perforated. The base of the appendix was viable. The appendix was grasped and a window within the mesentery was made at the base of the appendix using the [place] dissector with care to avoid injuring the cecum. The mesoappendix was then divided using the endo-stapler with a staple length of 2.5 mm-white load. The mesenteric staple line was inspected for hemostasis. The appendix was then amputated flush at the cecum using the endo-stapler blue load. The specimen was retrieved using a endoscopic retrieval bad through the 10 mm infra-umbilical port. The right paracolic gutter and the pouch of Piyush were irrigated. A 19 [place] Nils drain was placed into the right lower quadrant brought out through the left side of the abdomen. The 5 mm ports were then removed under direct visualization. The umbilical fascial incision was closed with 0 Vicryl in a figure-eight fashion. The skin wounds were irrigated and closed with 4-0 Monocryl followed by the application of Dermabond. Sponge instrument count at the end of the operation was correct. The patient tolerated procedure well was extubated and transferred to the postoperative care unit in stable condition. Complications: none Post-operative Condition: stable Disposition: Acute Care
[2020-09-15] MEDS: LATANOPROST 0.005% OPHTH 2.5 ML 1 DROPS EYE-BOTH (20:09)
[2020-09-16] VITALS (14 sets, daily range): BP systolic 118–145; BP diastolic 53–70; PULSE 72–78; RESP 15–20; TEMP 35.7–36.7; O2SAT 95–98
[2020-09-16] MEDS: ACETAMINOPHEN 325 MG TABLET 975 MG PO ×3 (00:38→11:22)
[2020-09-16] MEDS: KETOROLAC 30 MG/ML VIAL IV ×4 (00:39→18:40)
[2020-09-16] MEDS: SODIUM CHLORIDE 0.9% 1,000 ML 150 ML IV (06:14)
[2020-09-16 06:17] LABS: Add Manual Diff / Slide Review NO; Basophils Absolute Auto 0 /uL (0-100); Basophils Percent Auto 0.1 % (0-2); Eosinophils Absolute Auto 0 /uL (0-450); Hematocrit 37.8 % (36-46); Hemoglobin 12.5 g/dL (12.0-16.0); Lymphocytes Absolute Auto 400 /uL (1100-4500); Lymphocytes Percent Auto 3.9 % (25-40); Mean Corpuscular HGB Conc 33.1 % (30-36); Mean Corpuscular Hemoglobin 33.5 PG (26-34); Mean Corpuscular Volume 101.2 fL (80-100); Monocytes Absolute Auto 500 /uL (0-900); Monocytes Percent Auto 5.2 % (3-14); Neutrophils Absolute Auto 9300 /uL (1500-7000); Neutrophils Percent Auto 90.8 % (50-75); Platelet Count 230 X10^3/uL (150-400); Red Blood Cell Count 3.74 X10^6/uL (4.0-5.2); Red Cell Distribution Width 13.1 % (11.6-14.8); White Blood Cell Count 10.2 X10^3/uL (4.5-11.0)
[2020-09-16] MEDS: PIPERACILLIN/TAZO 3.375 GM in SODIUM CHLORIDE 0.9% 100 ML 25 ML IV ×3 (06:20→23:02)
[2020-09-16 06:28] LABS: Blood Urea Nitrogen 13 mg/dL (7-17); Calcium 8.9 mg/dL (8.4-10.2); Carbon Dioxide 21 mmol/L (22-32); Chloride 105 mmol/L (98-107); Estimated Glomerular Filt Rate > 60.0 mL/min (>60); Glucose 136 mg/dL (80-110); HEMOLYSIS < 15 (0-50); Sodium 133 mmol/L (137-145)
[2020-09-16] MEDS: METOPROLOL ER 25 MG TABLET PO (09:05)
[2020-09-16] MEDS: AMLODIPINE 5 MG TABLET PO (09:06)
--- NOTE | 2020-09-16 11:23 | PC.NURSE ---
Day shift: Per Dr Wang to finish current bag of IV fluids at rate of 100ml/hr and when complete she can be SL. Encouraged Pt to drink fluids and to ambulate in halls as tolerated. Pt has walked AC today at approx 1100. Makes need kown proper. Call light in reach. Will continue w/ plan of care.
--- NOTE | 2020-09-16 12:00 | PM.PNPO.1 ---
Subjective Subjective Date Patient Seen: 09/16/20 Time Patient Seen: 12:00 Interval history: Laparoscopic appendectomy late yesterday afternoon. Necrotic perforated appendix with purulence and fluid within the pelvis. Today feels significantly better than yesterday hungry no nausea vomiting or fever. White blood cell count down to 10 from 17 Exam Vital Signs (past 8 hours): - 09/16/20 08:21 09/16/20 09:05 09/16/20 09:54 Temperature 98.0 F Pulse Rate 76 76 72 Respiratory Rate 16 Blood Pressure 145/65 H 145/65 H 126/56 L Pulse Oximetry 95 09/16/20 11:41 Temperature 98.1 F Pulse Rate 72 Respiratory Rate 15 Blood Pressure 123/60 Pulse Oximetry 98 Oxygen Delivery Method Room Air Oxygen Flow Rate 0 Narrative Exam Narrative: General adult female alert oriented no acute distress Abdomen soft no peritonitis percutaneous drain with murky fluid within the bulb Objective Labs Result Diagrams: 09/16/20 05:43 09/16/20 05:43 Labs: Laboratory Results - last 24 hr 09/16/20 09/16/20 05:43 05:43 WBC 10.2 RBC 3.74 L Hgb 12.5 Hct 37.8 MCV 101.2 H MCH 33.5 MCHC 33.1 RDW 13.1 Plt Count 230 Neut % (Auto) 90.8 H Lymph % (Auto) 3.9 L [place] % (Auto) 5.2 Eos % (Auto) 0.0 L Baso % (Auto) 0.1 Neut # (Auto) 9300 H Lymph # (Auto) 400 L [place] # (Auto) 500 Eos # (Auto) 0 Baso # (Auto) 0 Sodium 133 L Potassium 4.0 Chloride 105 Carbon Dioxide 21 L BUN 13 Creatinine 0.50 L Estimated GFR > 60.0 BUN/Creatinine Ratio 26.0 H Glucose 136 H Calcium 8.9 PFSH Medical History Essential hypertension Hyperlipidemia Surgical History History of hysterectomy History of repair of rotator cuff Family History Mother Esophageal cancer Tobacco dependence Father Lung cancer Tobacco dependence Social History household members: spouse Smoking Status: Never smoker alcohol intake: current Assessment & Plan Post-op Postoperative Procedures: Procedures Operation Date: 09/15/20 16:45 Actual Procedures Side Surgeon p Laparoscopic Appendectomy Dionte Keenan MD Postoperative status narrative: 74-year-old female postoperative day 1 status post laparoscopic appendectomy for necrotic appendix with kwasi perforation. Overall she is doing well and improving. Anticipate discharge home tomorrow with drain on Augmentin x1 week. Remains hospitalized today for continued IV antibiotic therapy -regular diet -continue Zosyn -drain teaching anticipate discharge home with drain if it is still murky tomorrow -SCDs and Lovenox Quality VTE Deep Vein Thrombosis/Pulmonary Embolism Present on Admission: No
[2020-09-16] MEDS: SODIUM CHLORIDE 0.9% 1,000 ML 50 ML IV (19:36)
[2020-09-16] MEDS: LATANOPROST 0.005% OPHTH 2.5 ML 1 DROPS EYE-BOTH (21:00)
[2020-09-16] MEDS: lisinopriL 20 MG TABLET 40 MG PO (21:00)
[2020-09-17] VITALS (17 sets, daily range): BP systolic 132–157; BP diastolic 65–80; PULSE 66–95; RESP 14–20; TEMP 36.3–36.9; O2SAT 93–99
[2020-09-17] MEDS: ACETAMINOPHEN 325 MG TABLET 975 MG PO ×2 (00:12→06:29)
[2020-09-17] MEDS: KETOROLAC 30 MG/ML VIAL IV ×2 (00:12→18:23)
[2020-09-17 05:39] LABS: Add Manual Diff / Slide Review NO; Basophils Absolute Auto 0 /uL (0-100); Basophils Percent Auto 0.2 % (0-2); Eosinophils Absolute Auto 0 /uL (0-450); Eosinophils Percent Auto 0.1 % (2-4); Hematocrit 36.1 % (36-46); Lymphocytes Absolute Auto 700 /uL (1100-4500); Mean Corpuscular HGB Conc 33.1 % (30-36); Mean Corpuscular Hemoglobin 33.3 PG (26-34); Mean Corpuscular Volume 100.6 fL (80-100); Monocytes Absolute Auto 1000 /uL (0-900); Monocytes Percent Auto 7.1 % (3-14); Neutrophils Absolute Auto 12100 /uL (1500-7000); Neutrophils Percent Auto 87.6 % (50-75); Platelet Count 252 X10^3/uL (150-400); Red Blood Cell Count 3.59 X10^6/uL (4.0-5.2); Red Cell Distribution Width 12.9 % (11.6-14.8); White Blood Cell Count 13.9 X10^3/uL (4.5-11.0)
[2020-09-17 06:09] LABS: BUN Creatinine Ratio 29.6 (6-22); Blood Urea Nitrogen 16 mg/dL (7-17); Calcium 8.4 mg/dL (8.4-10.2); Carbon Dioxide 23 mmol/L (22-32); Chloride 98 mmol/L (98-107); Estimated Glomerular Filt Rate > 60.0 mL/min (>60); Glucose 145 mg/dL (80-110); HEMOLYSIS < 15 (0-50); Potassium 4.2 mmol/L (3.4-5.1); Sodium 126 mmol/L (137-145)
[2020-09-17] MEDS: PIPERACILLIN/TAZO 3.375 GM in SODIUM CHLORIDE 0.9% 100 ML 25 ML IV ×3 (06:24→22:51)
[2020-09-17] MEDS: ENOXAPARIN 40 MG/0.4 ML SYRINGE SUBCUT (09:31)
[2020-09-17] MEDS: AMLODIPINE 5 MG TABLET PO (09:32)
[2020-09-17] MEDS: METOPROLOL ER 25 MG TABLET PO (09:32)
[2020-09-17] MEDS: LORazepam 2 MG/ML INJ 0.5 MG IV (11:04)
--- NOTE | 2020-09-17 17:06 | PM.PNPO.1 ---
Subjective Subjective Date Patient Seen: 09/17/20 Time Patient Seen: 14:50 Interval history: Patient is post a laparoscopic appendectomy for perforation. She has a drain in place. She feels pretty well. She has had a still has some abdominal discomfort. She has been up walking in the halls. She feels much better than she did since she had a bowel movement. Exam Vital Signs (past 8 hours): - 09/17/20 09:15 09/17/20 09:32 09/17/20 10:03 Temperature 98.4 F Pulse Rate 84 70 81 Respiratory Rate 16 Blood Pressure 132/65 145/74 H 141/70 H Pulse Oximetry 99 09/17/20 11:22 09/17/20 12:06 09/17/20 12:35 Temperature 97.6 F Pulse Rate 80 81 Respiratory Rate 16 Blood Pressure 140/79 134/71 Pulse Oximetry 96 98 09/17/20 15:48 09/17/20 16:15 Temperature 98.3 F Pulse Rate 95 H Respiratory Rate 20 Blood Pressure 146/80 H Pulse Oximetry 97 99 Oxygen Delivery Method Room Air Oxygen Flow Rate 0 Narrative Exam Narrative: No distress. Her lungs are good at that effort. Abdomen is little distended but soft. Drainage is still quite cloudy. Objective Labs Result Diagrams: 09/17/20 05:15 09/17/20 05:15 Labs: Laboratory Results - last 24 hr 09/17/20 09/17/20 05:15 05:15 WBC 13.9 H RBC 3.59 L Hgb 12.0 Hct 36.1 MCV 100.6 H MCH 33.3 MCHC 33.1 RDW 12.9 Plt Count 252 Neut % (Auto) 87.6 H Lymph % (Auto) 5.0 L [place] % (Auto) 7.1 Eos % (Auto) 0.1 L Baso % (Auto) 0.2 Neut # (Auto) 60494 H Lymph # (Auto) 700 L [place] # (Auto) 1000 H Eos # (Auto) 0 Baso # (Auto) 0 Sodium 126 L Potassium 4.2 Chloride 98 Carbon Dioxide 23 BUN 16 Creatinine 0.54 Estimated GFR > 60.0 BUN/Creatinine Ratio 29.6 H Glucose 145 H Calcium 8.4 PFSH Medical History Essential hypertension Hyperlipidemia Surgical History History of hysterectomy History of repair of rotator cuff Family History Mother Esophageal cancer Tobacco dependence Father Lung cancer Tobacco dependence Social History household members: spouse Smoking Status: Never smoker alcohol intake: current Assessment & Plan Post-op Postoperative Procedures: Procedures Operation Date: 09/15/20 16:45 Actual Procedures Side Surgeon p Laparoscopic Appendectomy Dionte Keenan MD Postoperative status narrative: Still has an elevated white blood cell count. Drainage still cloudy. Abdomen remains look distended. Postoperative plan narrative: Will continue IV antibiotics and inpatient status. Re-evaluate tomorrow. Quality VTE Deep Vein Thrombosis/Pulmonary Embolism Present on Admission: No
[2020-09-17] MEDS: SODIUM CHLORIDE 0.9% 1,000 ML 50 ML IV (18:22)
[2020-09-17] MEDS: LATANOPROST 0.005% OPHTH 2.5 ML 1 DROPS EYE-BOTH (20:19)
[2020-09-17] MEDS: lisinopriL 20 MG TABLET 40 MG PO (20:19)
[2020-09-18] VITALS (10 sets, daily range): BP systolic 134–163; BP diastolic 72–94; PULSE 82–124; RESP 14–18; TEMP 36.8–37.3; O2SAT 94–98
[2020-09-18] MEDS: KETOROLAC 30 MG/ML VIAL IV ×4 (01:16→19:12)
[2020-09-18 05:41] LABS: Add Manual Diff / Slide Review NO; Basophils Absolute Auto 0 /uL (0-100); Basophils Percent Auto 0.2 % (0-2); Eosinophils Absolute Auto 400 /uL (0-450); Eosinophils Percent Auto 2.6 % (2-4); Hematocrit 34.7 % (36-46); Hemoglobin 11.6 g/dL (12.0-16.0); Lymphocytes Absolute Auto 1100 /uL (1100-4500); Lymphocytes Percent Auto 7.3 % (25-40); Mean Corpuscular HGB Conc 33.4 % (30-36); Mean Corpuscular Hemoglobin 33.1 PG (26-34); Mean Corpuscular Volume 99.3 fL (80-100); Monocytes Absolute Auto 1000 /uL (0-900); Monocytes Percent Auto 6.5 % (3-14); Neutrophils Absolute Auto 12500 /uL (1500-7000); Neutrophils Percent Auto 83.4 % (50-75); Platelet Count 281 X10^3/uL (150-400); Red Blood Cell Count 3.49 X10^6/uL (4.0-5.2); Red Cell Distribution Width 12.9 % (11.6-14.8)
[2020-09-18 05:51] LABS: BUN Creatinine Ratio 23.8 (6-22); Blood Urea Nitrogen 10 mg/dL (7-17); Calcium 7.9 mg/dL (8.4-10.2); Carbon Dioxide 23 mmol/L (22-32); Chloride 103 mmol/L (98-107); Estimated Glomerular Filt Rate > 60.0 mL/min (>60); Glucose 112 mg/dL (80-110); HEMOLYSIS < 15 (0-50); Potassium 3.6 mmol/L (3.4-5.1); Sodium 132 mmol/L (137-145)
[2020-09-18] MEDS: PIPERACILLIN/TAZO 3.375 GM in SODIUM CHLORIDE 0.9% 100 ML 25 ML IV (07:13)
--- NOTE | 2020-09-18 07:56 | DI.RAD.S_ITS ---
PROCEDURE: XR CHEST 1V INDICATIONS: WBC increasing, rule out pulm source TECHNIQUE: One view of the chest was acquired. COMPARISON: [facility], CT, CT ABDOMEN PELVIS W CON, 09/14/2020, 19:23. [facility], CR, XR CHEST 1V, 01/03/2020, 13:57. FINDINGS: Surgical changes and devices: None. Lungs and pleura: Mild, streaky opacities are seen at the lung bases. There is mild blunting of the left costophrenic angle. No pneumothorax. Mediastinum: Mediastinal contours appear normal. Heart size is normal. Bones and chest wall: No suspicious bony lesions. Age-appropriate bony degenerative changes are seen. Mild dextroconvex scoliotic curvature is seen. Overlying soft tissues appear unremarkable. IMPRESSION: Presumed atelectasis is seen at the lung bases. Differential diagnosis includes minimal/early infiltrate, yet this is considered to be less likely. Blunting of the left costophrenic angle is seen, which is attributed to atelectasis. Differential diagnosis includes a small pleural effusion, however. Dictated by: Prieto Frazier M.D. on 09/18/2020 at 8:02 Approved by: Prieto Frazier M.D. on 09/18/2020 at 8:03
[2020-09-18 08:20] LABS: WBC Urine None Seen (0-5/HPF)
[2020-09-18 08:22] LABS: Appearance Urine UA CLEAR; Bilirubin Urine UA NEGATIVE (NEGATIVE); Color Urine UA YELLOW; Glucose Urine UA NEGATIVE (Negative); Ketones Urine UA NEGATIVE (NEGATIVE); Leukocyte Esterase Urine UA NEGATIVE (NEGATIVE); Nitrite Urine UA NEGATIVE (Negative); Occult Blood Urine UA TRACE-LYSED (Negative); Protein Urine UA NEGATIVE (Negative); Urobilinogen Urine UA 0.2 E.U./dL (0.2)
[2020-09-18 08:28] LABS: RBC Urine 0-1/HPF (0-5/HPF); Squamous Epithelial Cell Urine 0-1 /HPF (0-5/HPF)
[2020-09-18 08:29] LABS: Bacteria Urine Occasional (0-1); Culture Indicated Urine Cult Not Indicated
[2020-09-18] MEDS: AMLODIPINE 5 MG TABLET PO (09:00)
[2020-09-18] MEDS: METOPROLOL ER 25 MG TABLET PO (09:00)
[2020-09-18] MEDS: ENOXAPARIN 40 MG/0.4 ML SYRINGE SUBCUT (09:00)
[2020-09-18] MEDS: SODIUM CHLORIDE 0.9% FLUSH 10 ML IV (09:05)
--- NOTE | 2020-09-18 09:41 | DI.CT.S_ITS ---
PROCEDURE: CT ABDOMEN PELVIS W CON INDICATIONS: r/o Abscess; increasing WBC s/p perforated appendicitis TECHNIQUE: After the administration of oral and intravenous contrast, 5 mm thick sections acquired from the diaphragms to the symphysis. 5 mm thick coronal and sagittal reformats were performed. For radiation dose reduction, the following was used: automated exposure control, adjustment of mA and/or kV according to patient size. COMPARISON: [facility], CT, CT ABDOMEN PELVIS W CON, 09/14/2020, 19:23. FINDINGS: Image quality: Excellent. ABDOMEN: Lung bases: Small bilateral pleural effusions are seen, with overlying dependent atelectasis. Heart size is normal. Solid organs: Liver is normal in size and enhancement. Gallbladder demonstrates no significant abnormality. Biliary system is non-dilated. Pancreas enhances normally. Spleen is normal in size and enhancement. No adrenal nodules. Kidneys are normal in size and enhancement, without hydronephrosis. Peritoneum and bowel: A lower abdominal drainage tube is seen, with the tip seen involving the right lower quadrant. Interval appendectomy changes are seen, with apparent anastomotic staple lines. Right lower quadrant fluid collections are seen, with mild rim enhancement, with the largest locule measuring 3.8 x 2.2 cm in greatest axial dimension, with a craniocaudal extent of 4.8 cm. The amount of free fluid within the right lower quadrant is clearly improved compared to the prior. No dilated loops of small bowel are seen. No significant abnormality of the colon is seen. Mild distal colonic diverticulosis is seen. Nodes and vessels: No retroperitoneal or mesenteric adenopathy. Aorta and inferior vena cava are normal in caliber. Miscellaneous: No ventral hernias. A small amount of free air is seen involving the anterior abdominal wall. PELVIS: Genitourinary: Bladder wall thickness is normal. Miscellaneous: No inguinal hernias or adenopathy. Generalized body wall edema is seen. Bones: No suspicious bony lesions. No vertebral body compression fractures. There is moderate levoconvex scoliosis. Degenerative changes are seen, which are worst involving the lower lumbar spine. IMPRESSION: Interval appendectomy, with a likely early abscess of the right lower quadrant measures up to 4.8 cm. A drainage tube has been placed, with the tip within the right lower quadrant. The amount of free fluid has decreased compared to the prior examination. Small bilateral pleural effusions are seen, with overlying dependent atelectasis. Incidental note is made of: Moderate levoconvex scoliosis Focal lower lumbar spine degenerative change Hysterectomy Diverticulosis, without active diverticulitis Note: Case discussed by telephone with nurse Danial at 5:14 p.m. [place] time on September 18, 2020. He will discuss the case with Dr. Machado, who will call back if there are any questions. Dictated by: Prieto Frazier M.D. on 09/18/2020 at 17:05 Approved by: Prieto Frazier M.D. on 09/18/2020 at 17:16
[2020-09-18] MEDS: metroNIDAZOLE 500 MG/100 ML PIGGYBACK 100 MG IV ×2 (13:09→18:09)
--- NOTE | 2020-09-18 13:55 | P.PN_ITS ---
Subjective Subjective Date Patient Seen: 09/18/20 Time Patient Seen: 13:55 Interval history: No acute events overnight. The patient says she feels bloated, and has had 1 small bowel movement since surgery, and continues to pass gas. She denies nausea. Exam Vital Signs (past 8 hours): - 09/18/20 09:30 09/18/20 12:15 Temperature 98.9 F 98.7 F Pulse Rate 87 87 Respiratory Rate 16 16 Blood Pressure 144/72 H 161/83 H Pulse Oximetry 95 96 Oxygen Delivery Method Room Air Oxygen Flow Rate 0 Narrative Exam Narrative: GENERAL: Alert, comfortable. Appears stated age. Answers questions promptly and appropriately. Vital signs noted. HENT: Normocephalic, atraumatic. Hearing intact. EYES: Conjunctiva pink, sclera white, no periorbital swelling. CARDIOVASCULAR: Regular rate. No pedal edema. RESPIRATORY: Non-tachypneic, breathing comfortably on room air. GASTROINTESTINAL: Abdomen soft, mildly distended, YENI drain with serous output with some tiny bubbles in it. I do not see any purulent component to the fluid. It looks slightly thicker because of the bubbles, but on close inspection is clear serous fluid. GENITALURINARY: No flank tenderness. MUSCULOSKELETAL: Equal tone and mass bilaterally. SKIN: Warm, dry, soft, appropriate color for ethnicity. No other lesions, rashes, or wounds. NEURO: Alert and Oriented X 3. No gross sensory deficits, or cognitive issues. PSYCH: Appropriate affect and mood. Objective Labs Result Diagrams: 09/18/20 05:13 09/18/20 05:13 Labs: Laboratory Results - last 24 hr 09/18/20 09/18/20 09/18/20 05:13 05:13 08:07 WBC 15.0 H RBC 3.49 L Hgb 11.6 L Hct 34.7 L MCV 99.3 MCH 33.1 MCHC 33.4 RDW 12.9 Plt Count 281 Neut % (Auto) 83.4 H Lymph % (Auto) 7.3 L [place] % (Auto) 6.5 Eos % (Auto) 2.6 Baso % (Auto) 0.2 Neut # (Auto) 90184 H Lymph # (Auto) 1100 [place] # (Auto) 1000 H Eos # (Auto) 400 Baso # (Auto) 0 Sodium 132 L Potassium 3.6 Chloride 103 Carbon Dioxide 23 BUN 10 Creatinine 0.42 L Estimated GFR > 60.0 BUN/Creatinine Ratio 23.8 H Glucose 112 H Calcium 7.9 L Urine Color Yellow Urine Appearance Clear Urine pH 7.0 Ur Specific [place] 1.010 Urine Protein Negative Urine Glucose (UA) Negative Urine Ketones Negative Urine Occult Blood Trace-lysed Urine Nitrate Negative Urine Bilirubin Negative Urine Urobilinogen 0.2 Ur Leukocyte Esterase Negative Urine RBC 0-1/hpf Urine WBC None seen Ur Squamous Epith Cells 0-1 /hpf Urine Bacteria Occasional (0-1) Ur Culture Indicated? Cult not indicated PFSH Medical History Essential hypertension Hyperlipidemia Surgical History History of hysterectomy History of repair of rotator cuff Family History Mother Esophageal cancer Tobacco dependence Father Lung cancer Tobacco dependence Social History household members: spouse Smoking Status: Never smoker alcohol intake: current Assessment & Plan Assessment and plan (1) Leukocytosis: Qualifiers: Leukocytosis type: unspecified Qualified Code(s): D72.829 - Elevated white blood cell count, unspecified Status: Acute (2) Acute appendicitis: Qualifiers: Acute appendicitis type: with generalized peritonitis Appendicitis abscess presence: unspecified whether abscess present Appendicitis gangrene presence: unspecified whether gangrene present Appendicitis perforation presence: unspecified whether perforation present Qualified Code(s): K35.20 - Acute appendicitis with generalized peritonitis, without abscess Status: Acute (3) Stable angina: Status: Acute (4) Status post laparoscopic appendectomy: Status: Acute (5) Perforated appendicitis: Status: Acute (6) Essential hypertension: Status: Chronic (7) Hyperlipidemia: Qualifiers: Hyperlipidemia type: unspecified Qualified Code(s): E78.5 - Hyperlipidemia, unspecified Status: Chronic Assessment & Plan narrative: This is a 74-year-old woman who is postop day 3 from laparoscopic appendectomy for perforated appendicitis. She had a drain left because of gross purulent fluid in the abdomen. Postop day 1 her white blo od cell count was 10, and has crept up to 13 and then 15 over the last 2 days. This morning she had a UA, chest x-ray, and analysis of the drain fluid. None of these have shown indication of an infectious source. She does not have any skin findings or other indications as a cause of her increased white blood cell count. This may be just delayed reaction of the immune system. However, due to the severity of her appendicitis, we will go ahead and get a CT scan to look for any missed fluid collection, and I will change her antibiotics from Zosyn to Cipro/Flagyl. She is currently NPO awaiting CT scan of abdomen pelvis with p.o. and IV contrast. COVID-19 COVID-19 status: Negative Result date/Date tested (Pos, Neg/Pending): 09/14/20 Time Spent With Patient Time with patient: 15-24 minutes Quality VTE Deep Vein Thrombosis/Pulmonary Embolism Present on Admission: No
--- NOTE | 2020-09-18 16:27 | CM.DPNOTE ---
DCP Note Patient is now postop day 3 from laparoscopic appendectomy for perforated appendicitis. WBC has risen today. Dr Machado has ordered a CT scan today to look for any missed fluid collection, and has changed patient's antibiotics from Zosyn to Cipro/Flagyl. She is currently NPO awaiting CT scan of abdomen pelvis with p.o. and IV contrast. Patient continues to plan for DC home w/supportive family. [employer] team will follow closely in case any needs arise before DC JW Discharge Planning/Care Management Advanced directive, confirm from FAMILY Start: 09/14/20 20:56 Freq: Q24H Status: Complete Protocol: Document 09/14/20 20:58 KMD (Rec: 09/14/20 20:59 KMD [id number]) Advance Directive, confirm on record Time 20:59 Person contacted Patient Copy received No CM Discharge Assessment Start: 09/15/20 16:54 Freq: Status: Active Protocol: Document 09/15/20 16:54 KJS (Rec: 09/15/20 17:26 KJS [id number]) Discharge Planning Assessment Assigned [employer] Contact Information Ashu Paniagua (spouse) ph# Advance Directives? Yes Advance Directives on File No History Provided By Patient,Medical Record Prior Living Arrangements House Household Members spouse Independent with ADL's Yes Is patient alert and oriented? Patient off floor for surgery Discharge Plan Home Transportation Arrangement Anticipate that family will provide transport. Additional Comment Unable to see patient because she was off floor for surgery. Comment Reviewed chart. Patient is a 74yr old female admitted to I. . with abdominal pain. Patient appendectomy for ruptured appendicitis. Patient off floor at time of initial visit from CM team today. Review Status In Process Next Review Type Continued Stay Review
[2020-09-18] MEDS: CIPROFLOXACIN 400 MG/200 ML PIGGYBACK 200 MG IV (19:12)
[2020-09-18] MEDS: lisinopriL 20 MG TABLET 40 MG PO (21:12)
[2020-09-18] MEDS: LATANOPROST 0.005% OPHTH 2.5 ML 1 DROPS EYE-BOTH (21:12)
[2020-09-19] VITALS (21 sets, daily range): BP systolic 139–167; BP diastolic 65–94; PULSE 76–124; RESP 12–20; TEMP 36.5–37.5; O2SAT 92–98; BMI 26.2
[2020-09-19] MEDS: metroNIDAZOLE 500 MG/100 ML PIGGYBACK 100 MG IV ×5 (00:07→23:54)
[2020-09-19] MEDS: SODIUM CHLORIDE 0.9% FLUSH 10 ML IV ×4 (00:07→09:54)
[2020-09-19] MEDS: KETOROLAC 30 MG/ML VIAL IV ×3 (01:08→23:54)
[2020-09-19] MEDS: ONDANSETRON 4 MG/2 ML INJ IV ×2 (02:44→08:17)
--- NOTE | 2020-09-19 02:54 | PC.NURSE ---
Addendum entered by Александр Fisher CNA 09/19/20 04:26: At Q4 VS check temp reduced to 97.9 F. Pt reports feeling much better with application of ice, wet rag, and is without nausea. Original Note: Pt reports feeling very warm and nauseous, only bed sheet and 1 blanket on top, oral temp 99.5 F. RN notified, cold wet rag and ice placed on forehead and back of neck for comfort.
[2020-09-19 06:14] LABS: Add Manual Diff / Slide Review NO; Basophils Absolute Auto 0 /uL (0-100); Basophils Percent Auto 0.1 % (0-2); Eosinophils Absolute Auto 600 /uL (0-450); Hemoglobin 13.1 g/dL (12.0-16.0); Lymphocytes Absolute Auto 1600 /uL (1100-4500); Lymphocytes Percent Auto 8.2 % (25-40); Mean Corpuscular HGB Conc 32.8 % (30-36); Mean Corpuscular Hemoglobin 32.8 PG (26-34); Mean Corpuscular Volume 100.1 fL (80-100); Monocytes Absolute Auto 1800 /uL (0-900); Monocytes Percent Auto 9.5 % (3-14); Neutrophils Absolute Auto 15200 /uL (1500-7000); Neutrophils Percent Auto 79.2 % (50-75); Platelet Count 394 X10^3/uL (150-400); Red Blood Cell Count 3.99 X10^6/uL (4.0-5.2); Red Cell Distribution Width 13.1 % (11.6-14.8); White Blood Cell Count 19.2 X10^3/uL (4.5-11.0)
[2020-09-19 06:22] LABS: BUN Creatinine Ratio 14.6 (6-22); Blood Urea Nitrogen 7 mg/dL (7-17); Calcium 8.6 mg/dL (8.4-10.2); Carbon Dioxide 29 mmol/L (22-32); Chloride 97 mmol/L (98-107); Estimated Glomerular Filt Rate > 60.0 mL/min (>60); Glucose 130 mg/dL (80-110); HEMOLYSIS < 15 (0-50); Magnesium 1.9 mg/dL (1.6-2.3); Potassium 3.9 mmol/L (3.4-5.1); Sodium 132 mmol/L (137-145)
[2020-09-19] MEDS: CIPROFLOXACIN 400 MG/200 ML PIGGYBACK 200 MG IV ×2 (06:33→19:24)
--- NOTE | 2020-09-19 06:45 | PC.NURSE ---
Dr. Machado notified, fernando drain total out was 535 cc of yellowish fluid. Temp. @ 0254 was 99.5 & 98.6 this morning. Also notified that WBC is now 19.2, ordered to let patient know that she's coming in this morning. Talked to her & maybe going back to surgery for a wash out. Pt. NPO since MN. Also mentioned that pt. C/O feeling bloated & warm blanket applied to her abdomen & pt. reported it helped. Will report to day RN. & monitor.
--- NOTE | 2020-09-19 07:50 | DI.US.S_ITS ---
PROCEDURE: US PERIPH VENOUS LOW EXTREM BI INDICATIONS: Lateral ankle edema, clinical concern for DEEP VEIN THROMBOSIS. TECHNIQUE: Real-time imaging, as well as color and pulse Doppler interrogation, were performed of the deep veins of both legs from the inguinal ligament to the popliteal fossa. COMPARISON: None. FINDINGS: Right: The common femoral, femoral and popliteal veins are normally compressible, and free of intraluminal thrombus. Color and pulse Doppler demonstrate normal phasic intravascular flow. There is normal augmentation response to distal compression maneuver. Left: The common femoral, femoral and popliteal veins are normally compressible, and free of intraluminal thrombus. Color and pulse Doppler demonstrate normal phasic intravascular flow. There is normal augmentation response to distal compression maneuver. IMPRESSION: Negative for deep venous thrombosis. Dictated by: Prieto Frazier M.D. on 09/19/2020 at 9:09 Approved by: Prieto Frazier M.D. on 09/19/2020 at 9:10
--- NOTE | 2020-09-19 08:25 | PM.PREOP ---
Pre-operative Note COVID-19 COVID-19 status: Negative Result date/Date tested (Pos, Neg/Pending): 09/14/20 Interval Note History & Physical reviewed/Exam performed by Physician: No Changes to H&P: Yes H&P completed within 30 days and has changed as indicated here:: Increasing WBC, abscess on repeat CT abdomen. Risk and benefit of surgery discussed. Laparoscopic possible open abdominal washout, possible bowel resection. Risks of bleeding, infection, damage to nearby structures, need for additional procedures was discussed. Patient desires to proceed with surgery today.
[2020-09-19] MEDS: MAGNESIUM SULFATE 1 GM in SODIUM CHLORIDE 0.9% 100 ML 204 ML IV (08:49)
[2020-09-19 08:50] LABS: COVID19 -Nasal RAPID Negative (Negative)
[2020-09-19] MEDS: AMLODIPINE 5 MG TABLET PO (09:54)
[2020-09-19] MEDS: METOPROLOL ER 25 MG TABLET PO (09:54)
[2020-09-19] MEDS: BUPIVACAINE 0.5% W/ EPI (PF) 30 ML VIAL INJ (11:54)
--- NOTE | 2020-09-19 11:55 | SUR.OPER ---
Supine on padded OR bed, head on pillow, arm padded and tucked at side, legs uncrossed, safety belt at thigh, tape over blanket over lower legs .Gel pad under bilateral heels
[2020-09-19] MEDS: BUPIVACAINE LIPOSOME 266 MG/20 ML VIAL INJ (12:30)
--- NOTE | 2020-09-19 13:27 | PM.OP.1 ---
Operative Date/Time/Diagnoses Date of procedure: 09/19/20 Time of procedure: 13:27 Pre-op diagnosis: Abdominal abscess status post perforated appendicitis Post-op diagnosis: same Procedure & Clinicians Procedure: Laparoscopic washout of abdominal abscess Same procedure as scheduled: Yes Indications: 74 year old woman who came in with perforated appendicitis 4 days ago, and has had an increasing white count over the last few days. CT scan yesterday showed a possible abscess in the right lower quadrant. After adjusting her antibiotic regimen, and checking for other sources of infection, her white blood cell count continues to increase, and no other source of infection have been detected. Therefore she is being taken to the operating room for diagnostic laparoscopy, and washout of abdominal abscess if 1 is found. Surgeon: Diana Machado Anesthesia Type: General Operative Notes Findings: Large purulent abscess cavity posterior to the cecum, containing stool and bloody purulent fluid. Staple line is intact, and was tested several times during the procedure with no leakage of gas or stool from the staple line. Specimen(s): other (Abscess fluid) Applied: drain(s) (19 round Nils drain) Estimated Blood Loss (mL): 5 Procedure in detail: The patient was brought into the operating room and placed supine on the OR table. Sequential compression devices were placed on both legs and turned on. 3.375 gm of Zosyn was given prior to the start of surgery. General anesthesia was induced the patient was intubated. Painter catheter was placed sterilely in the bladder. YENI drain was removed from the left lower quadrant port site. The abdomen was prepped and draped in sterile fashion. Surgical time-out was conducted. The umbilical port site was opened by removing the sutures, and a 10 mm laparoscopic port was replaced into the site. The abdomen is insufflated, and a camera was placed through the port to take a look around. Loops of bowel were seen adherent to each other, and up to the suprapubic port site. The left lower port site was replaced, and a blunt grasper was used to gently push the loops of bowel down from the suprapubic port site. I then replaced the suprapubic port, and turned our attention towards the right lower quadrant. There was some purulent rind overlying the bowel and abdominal wall in the right lower quadrant. This was gently peeled down, and the small bowel loops were gently taken down from their place of adherence to the cecum. The bowel loops were very friable, and densely adherent. Once I took down all that I safely could laparoscopically, the decision was made to go ahead and place a hand port. Local anesthetic was injected under the skin just superior to the umbilicus and the umbilical port incision was extended vertically for about 6 cm in the skin using a 10 blade. Dissection was then carried down to the fascia, and the fascia was opened for the full length of the incision using cautery. A GelPort hand port was placed, and the abdomen was reinsufflated. Using my hand I was able to gently separate the loops of bowel, and suddenly copious purulent bloody fluid came pouring from the right lower quadrant abscess cavity. This fluid was suctioned out and sent for culture. I then took down the remaining adherent loops of bowel, and exposed the staple line. The staple line appeared to be intact. It was tested by compressing the cecum above it. No air or liquid bubbled through the staple line. The staple line was tested again, and was found to be intact. A lap pad was placed at the abdomen and the fluid from the abscess was soaked up using the lap pad. I used several lap pads 1 after the other to soak up all of the abscess fluid. I then thoroughly irrigated with several L of saline, and suctioned it out again. I checked all 4 quadrants of the abdomen, and using a lap pad, I dried up any remaining purulent or murky looking fluid from above the liver, above the spleen, and in the left lower quadrant. We then did a final round of irrigation, suctioned everything out that we could see, and once again dried everything with a lap pad. I took a final look at the staple line, and again attempted to express any air or fluid from the staple line, but it was clearly intact. I then replaced a 19 round Nils drain, with the drain traversing posterior to the cecum and the site of the abscess cavity, and down into the pelvis. I sutured in place with a 3-0 nylon in the skin. We then desufflated the abdomen, and injected local anesthetic in the hand port incision using a total of 30 mL of 0.5% bupivacaine with epi for the entire case, and 20 mL of Exparel. I then closed the vertical hand port incision using running 0 PDS suture, and reinforcing with interrupted 0 Vicryl suture. I then closed the skin with alvino at the vertical hand port incision, and at the suprapubic port site. The sites were dressed with 4x4s and tape, and a Band-Aid over the suprapubic port site This concluded the procedure. At this point the needle sponge and instrument counts were correct. The patient was awakened from anesthesia and extubated. Painter catheter was removed without incident. The patient was transferred to the postanesthesia care unit in stable condition. Complications: none Post-operative Condition: stable Disposition: PACU
[2020-09-19] MEDS: LACTATED RINGERS 1,000 ML 42 ML IV (14:02)
--- NOTE | 2020-09-19 14:27 | SUR.PHASEI ---
Stable PACU stay, pt left with MARGIE Peacock in stable condition, bed low, locked SCD's on. Call lechuga in reach, pt aware to use as needed. Ring replaced to finger and cell phone returned to overhead table.
[2020-09-19] MEDS: lisinopriL 20 MG TABLET 40 MG PO (20:24)
[2020-09-19] MEDS: LATANOPROST 0.005% OPHTH 2.5 ML 1 DROPS EYE-BOTH (20:25)
[2020-09-20] VITALS (14 sets, daily range): BP systolic 132–161; BP diastolic 75–93; PULSE 72–86; RESP 16–18; TEMP 36.4–37.1; O2SAT 93–99
[2020-09-20] MEDS: SODIUM CHLORIDE 0.9% 1,000 ML 50 ML IV (05:40)
[2020-09-20] MEDS: metroNIDAZOLE 500 MG/100 ML PIGGYBACK 100 MG IV ×3 (05:40→18:39)
[2020-09-20 05:50] LABS: Add Manual Diff / Slide Review NO; Basophils Absolute Auto 0 /uL (0-100); Basophils Percent Auto 0.2 % (0-2); Eosinophils Absolute Auto 0 /uL (0-450); Hematocrit 37.9 % (36-46); Hemoglobin 12.4 g/dL (12.0-16.0); Lymphocytes Absolute Auto 800 /uL (1100-4500); Lymphocytes Percent Auto 5.5 % (25-40); Mean Corpuscular HGB Conc 32.8 % (30-36); Mean Corpuscular Hemoglobin 32.7 PG (26-34); Mean Corpuscular Volume 99.7 fL (80-100); Monocytes Absolute Auto 1000 /uL (0-900); Monocytes Percent Auto 6.8 % (3-14); Neutrophils Absolute Auto 12700 /uL (1500-7000); Neutrophils Percent Auto 87.5 % (50-75); Platelet Count 403 X10^3/uL (150-400); Red Blood Cell Count 3.81 X10^6/uL (4.0-5.2); Red Cell Distribution Width 13.5 % (11.6-14.8); White Blood Cell Count 14.5 X10^3/uL (4.5-11.0)
[2020-09-20 05:56] LABS: BUN Creatinine Ratio 20.5 (6-22); Blood Urea Nitrogen 9 mg/dL (7-17); Calcium 8.4 mg/dL (8.4-10.2); Carbon Dioxide 27 mmol/L (22-32); Chloride 101 mmol/L (98-107); Estimated Glomerular Filt Rate > 60.0 mL/min (>60); Glucose 170 mg/dL (80-110); HEMOLYSIS < 15 (0-50); Magnesium 2.1 mg/dL (1.6-2.3); Potassium 4.9 mmol/L (3.4-5.1); Sodium 133 mmol/L (137-145)
[2020-09-20] MEDS: KETOROLAC 30 MG/ML VIAL IV ×2 (06:52→12:33)
[2020-09-20] MEDS: CIPROFLOXACIN 400 MG/200 ML PIGGYBACK 200 MG IV ×2 (06:52→20:15)
[2020-09-20] MEDS: METOPROLOL ER 25 MG TABLET PO (08:26)
[2020-09-20] MEDS: SODIUM CHLORIDE 0.9% FLUSH 10 ML IV (08:27)
[2020-09-20] MEDS: AMLODIPINE 5 MG TABLET PO (08:27)
[2020-09-20] MEDS: ENOXAPARIN 40 MG/0.4 ML SYRINGE SUBCUT (08:41)
--- NOTE | 2020-09-20 13:06 | PM.PNPO.1 ---
Subjective Subjective Date Patient Seen: 09/20/20 Time Patient Seen: 11:06 Interval history: No acute overnight events. Tolerating a clear liquid diet ambulatory. OR yesterday for a laparoscopic drainage of intra abdominal abscess cultures pending Exam Vital Signs (past 8 hours): - 09/20/20 07:44 09/20/20 08:00 09/20/20 08:26 Temperature 97.6 F Pulse Rate 85 86 Respiratory Rate 16 Blood Pressure 161/93 H 161/93 H Pulse Oximetry 96 96 09/20/20 09:19 09/20/20 11:48 09/20/20 12:04 Temperature 98.7 F Pulse Rate 79 72 Respiratory Rate 16 Blood Pressure 140/75 Pulse Oximetry 99 97 Oxygen Delivery Method Room Air Oxygen Flow Rate 0 Narrative Exam Narrative: Gen-adult female alert and oriented Abdomen-Soft non tender drain SS Objective Labs Result Diagrams: 09/20/20 05:30 09/20/20 05:30 Labs: Laboratory Results - last 24 hr 09/20/20 09/20/20 05:30 05:30 WBC 14.5 H RBC 3.81 L Hgb 12.4 Hct 37.9 MCV 99.7 MCH 32.7 MCHC 32.8 RDW 13.5 Plt Count 403 H Neut % (Auto) 87.5 H Lymph % (Auto) 5.5 L [place] % (Auto) 6.8 Eos % (Auto) 0.0 L Baso % (Auto) 0.2 Neut # (Auto) 08333 H Lymph # (Auto) 800 L [place] # (Auto) 1000 H Eos # (Auto) 0 Baso # (Auto) 0 Sodium 133 L Potassium 4.9 Chloride 101 Carbon Dioxide 27 BUN 9 Creatinine 0.44 L Estimated GFR > 60.0 BUN/Creatinine Ratio 20.5 Glucose 170 H Calcium 8.4 Magnesium 2.1 PFSH Medical History Essential hypertension Hyperlipidemia Surgical History History of hysterectomy History of repair of rotator cuff Family History Mother Esophageal cancer Tobacco dependence Father Lung cancer Tobacco dependence Social History household members: spouse Smoking Status: Never smoker alcohol intake: current Assessment & Plan Post-op Postoperative Procedures: Procedures Operation Date: 09/15/20 16:45 Actual Procedures Side Surgeon p Laparoscopic Appendectomy Dionte Keenan MD Operation Date: 09/19/20 11:00 Actual Procedures Side Surgeon p Laparoscopic washout of pelvic abscess Diana Machado MD Postoperative status narrative: 74F POD 1 sp laparoscopic washout of intra abdominal abscess sp perforated appendicitis. -Regular diet -F/u micro cultures continue Cipro and Flagyl for now -If WBC downtrends will convert to PO meds tomorrow -Lovenox and SCDs Quality VTE Deep Vein Thrombosis/Pulmonary Embolism Present on Admission: No
--- NOTE | 2020-09-20 13:55 | PT.IIE ---
Current Diagnoses Elevated white blood cell count, unspecified (09/14/20) Hyperlipidemia, unspecified (09/14/20) Essential (primary) hypertension (09/14/20) Other forms of angina pectoris (09/14/20) Acute appendicitis with generalized peritonitis, without abscess (09/14/20) Acute appendicitis with perforation and localized peritonitis, without abscess (09/14/20) Acquired absence of other specified parts of digestive tract (09/14/20) Surgery Performed Operation Date: 09/15/20 16:45 Actual Procedures p Laparoscopic Appendectomy - Dionte Keenan MD Operation Date: 09/19/20 11:00 Actual Procedures p Laparoscopic washout of pelvic abscess - Diana Machado MD Surgical History (Last Reviewed 09/18/20 @ 13:56 by Diana Machado MD) History of hysterectomy History of repair of rotator cuff Medical History (Last Reviewed 09/18/20 @ 13:56 by Diana Machado MD) Essential hypertension Hyperlipidemia Physical Therapy Inpatient Evaluation/Re-Eval M1 PT/OT-IP Prior Functional Status Start: 09/20/20 13:09 Freq: NEEDED Status: Active Protocol: Document 09/20/20 13:55 AW (Rec: 09/20/20 14:56 AW [id number]) Medical Review Prior Functional Status Medical History Reviewed Yes Communication WNL Mobility and Gait Pt is active and independent at baseline. She is an avid golfer. She uses no AD except for trekking poles on more strenuous hikes. Activities of Daily Living and IADL's Independent with all ADL and IADL needs Social History Household Members spouse Living Arrangements House Number of Floors (Floors) Two Floors Number of Stairs To Enter/Railing? 2 BEHZAD with pillar on right side for support. Master bed and bath are on entry level receptionist. Pt climbs 13 steps to second level craft room with unilateral rail. 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 M2 PT-IP Current Condition Start: 09/20/20 13:09 Freq: NEEDED Status: Active Protocol: Document 09/20/20 13:55 AW (Rec: 09/20/20 14:56 AW [id number]) Physical Therapy Current Condition Current Condition Evaluation Date 09/20/20 Treatment Diagnosis lap appy s/p I&D; difficulty in walking Onset Date 09/15/20 Precautions Abdominal Surgery Precautions Log Roll,Lifting Restrictions, Gait Belt above Incisional Area M3 PT-IP Subjective Start: 09/20/20 13:09 Freq: NEEDED Status: Active Protocol: Document 09/20/20 13:55 AW (Rec: 09/20/20 14:56 AW [id number]) Subjective Physical Therapy Visit Type Type Initial Evaluation Visit Start Time 13:30 Visit Stop Time 13:55 Total Visit Minutes 25 Physical Therapy Visit Comments Patient Comments Pt is willing to participate with PT Patient Goals Return home with supportive family Therapy Pain Assessment Pain When Pain Assessed During Mobility Pain Present Pain Present Pain Reported Location abd Scale Used not quantified Pain Management Techniques Modification of Treatment M4 PT-IP Mobility and Gait Start: 09/20/20 13:09 Freq: NEEDED Status: Active Protocol: Document 09/20/20 13:55 AW (Rec: 09/20/20 14:56 AW [id number]) PT-Bed Mobility Assessment Rolling Type of Rolling Log Rolling,Roll to Left Level of Assist Standby Assistance Supine to Sit Supine to Sit Standby Assistance Scooting Scooting to Edge of Bed Independent PT-Transfer Assessment Sit to and From Stand Sit to and from Stand Independent Equipment Transfer Assistive Device Gait Belt,Front Wheeled Walker Orthotic/Prosthetic Devices or Brace: No Transfers Transfer Destination Bed,Chair Transfer Technique Stand Step Pivot Transfer Ability Level of Assist Standby Assistance Comments Mobility Comments Pt was lying in bed as PT arrived. BP 146/78 HR 88. PT instructed in log roll technique and pt was able to complete log roll bed mobility SBA with verbal cues for sequencing. She stood from the bed and ambulated around the unit a total of 300 feet with FWW SBA and no sign of imbalance. On return to the room, she sat on the chair and then transferred to the bed SBA. She completed reverse log roll to supine SBA. Pt was left with call light and all needs in reach. Gait Assessment Gait Gait Assistance Required: Standby Assistance Distance (Feet) 300 Able to Maintain Weight Bearing Status Yes During Gait Assistive Devices Assistive Device Gait Belt,Front Wheeled Walker Orthotic/Prosthetic Devices or Brace: No Gait Deviations General Gait Pattern Antalgic,Decreased Feet Clearance Factors Limiting Gait Function Factors Limiting Gait Function Pain Comments Gait Comments Pt ambulated safely with FWW, minimal UE weightbearing, and near complete trunk/hip extension. Stair Climbing Assessment Evaluation Level of Assist On Stairs Standby Assistance Devices Stair Climbing Assistive Devices Left Railing Technique/Endurance Stair Climbing Direction Ascend and Descend Stair Climbing Technique Step Over Step Number of Steps Climbed 3 Query Text: Stair Climbing Set # Repetitions (reps) 3 Comments Stair Climbing Comments Pt used unilateral rail as she would at home PT-Balance Assessment Sitting Balance and Reactions Static Sitting Balance Ability Good Dynamic Sitting Balance Ability Good Standing Balance and Reactions Static Standing Balance Ability Good Dynamic Standing Balance Ability Good Device Used FWW M5 PT-IP Objective Assessments Start: 09/20/20 13:09 Freq: NEEDED Status: Active Protocol: Document 09/20/20 13:55 AW (Rec: 09/20/20 14:56 AW [id number]) Orientation Orientation/Cognition Level of Alertness Alert Orientation Name,Day of Week,Place, Situation Language Function Ability No Deficits Noted Safety Awareness Understands Safety Issues Memory Description No Deficits Noted Gross Range of Motion Upper Extremity ROM Assessment Within Functional Limits Lower Extremity ROM Assessment Within Functional Limits Strength Upper Extremity Strength Assessment Within Functional Limits Lower Extremity Strength Assessment Within Functional Limits Hip 4+/5 Knee 5/5 Ankle 5/5 Sensation Assessment Sensation Gross Sensation WNL M6 PT-IP Treatment Start: 09/20/20 13:09 Freq: NEEDED Status: Active Protocol: Document 09/20/20 13:55 AW (Rec: 09/20/20 14:56 AW [id number]) Physical Therapy Treatment Education Education Provided Precautions Other Treatments Other Treatment Performed Provided handouts on log roll bed mobility and DME suppliers in case pt decides to procure FWW for home. M7 PT-IP Assessment and Plan Start: 09/20/20 13:09 Freq: NEEDED Status: Active Protocol: Document 09/20/20 13:55 AW (Rec: 09/20/20 14:56 AW [id number]) PT Summary Assessment and Plan Potential Rehabilitation Potential Excellent Status of Condition at Evaluation Evolving Summary Impairments Pain,Bed Mobility,Activity Tolerance Assessment Summary Joy is a 74 yo woman seen for PT evaluation on POD5 following laparoscopic appendectomy and POD1 following I&D for abscess. She is active and independent in all regards at baseline. On evaluation, she required SBA for ambulation 300 feet with FWW and for stairs. She was otherwise independent. Taught pt basic bed mobility and energy conservation strategies . Pt is cleared to walk the halls with nursing. No acute PT needs are identified and pt will be safe to discharge home with family support once medically stable. Recommending use of FWW for energy conservation at this time and pt is considering procuring one for home use. Frequency of Treatment Frequency Of Treatment Discharge Precautions Abdominal Surgery Precautions Log Roll,Lifting Restrictions, Gait Belt above Incisional Area Recommendations To Nursing Amount of Assist Needed Independent Discharge Recommendations PT Discharge Recommendations Home with Assistance Transportation Needs at Discharge Private Vehicle
--- NOTE | 2020-09-20 16:45 | CM.DPC ---
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 She reported living independently (ADL?s and driving) at home with in a two story house she will be able to stay on the ground floor of the home during her healing and recovery process. She anticipates being able to return home with no additional needs when medically stable as Ashu will be primary support and provide transportation at time of D/C. Per chart review Dr. Keenan is increasing her diet to General (Regular) for lunch this date. PLAN: Anticipate D/C home when medically stable. CM Team to continue to follow patient. RIA Cummins MSW Student
--- NOTE | 2020-09-20 18:45 | PC.NURSE ---
Addendum entered by Hermelinda Mcdonnell R.N. 09/20/20 23:00: Pt independent. IV infiltrated, 3 attempts w/ no success. notified. Orders received for po ABO,s Condition remains essentially unchanged. Call light w/in reach, pt calls appropriately for needs. Continue w/plan of care Original Note: Pt up ad lexy in room, denies any dizziness, Ambulated in hallway using walker. Lungs clear. HL RFA intact/patent Nils drain intact w/drainage noted. Dsg to abdomen CDI, Nils drain sg w/small amount serous drainage noted Call light w/in reach. Indepenent in room.
[2020-09-20] MEDS: lisinopriL 20 MG TABLET 40 MG PO (21:05)
[2020-09-20] MEDS: LATANOPROST 0.005% OPHTH 2.5 ML 1 DROPS EYE-BOTH (21:07)
[2020-09-20] MEDS: ACETAMINOPHEN 325 MG TABLET 975 MG PO (23:15)
[2020-09-21] VITALS (7 sets, daily range): BP systolic 153–156; BP diastolic 73–86; PULSE 72–80; RESP 16–18; TEMP 35.9–36.9; O2SAT 93–99
[2020-09-21 05:23] LABS: Add Manual Diff / Slide Review NO; Basophils Absolute Auto 0 /uL (0-100); Basophils Percent Auto 0.2 % (0-2); Eosinophils Absolute Auto 300 /uL (0-450); Eosinophils Percent Auto 2.3 % (2-4); Hematocrit 35.3 % (36-46); Hemoglobin 11.9 g/dL (12.0-16.0); Lymphocytes Absolute Auto 2100 /uL (1100-4500); Lymphocytes Percent Auto 15.3 % (25-40); Mean Corpuscular HGB Conc 33.5 % (30-36); Mean Corpuscular Hemoglobin 33.4 PG (26-34); Mean Corpuscular Volume 99.6 fL (80-100); Monocytes Absolute Auto 1800 /uL (0-900); Monocytes Percent Auto 13.4 % (3-14); Neutrophils Absolute Auto 9500 /uL (1500-7000); Neutrophils Percent Auto 68.8 % (50-75); Platelet Count 426 X10^3/uL (150-400); Red Blood Cell Count 3.55 X10^6/uL (4.0-5.2); Red Cell Distribution Width 13.4 % (11.6-14.8); White Blood Cell Count 13.8 X10^3/uL (4.5-11.0)
[2020-09-21 05:36] LABS: BUN Creatinine Ratio 23.1 (6-22); Blood Urea Nitrogen 12 mg/dL (7-17); Calcium 8.2 mg/dL (8.4-10.2); Carbon Dioxide 29 mmol/L (22-32); Chloride 101 mmol/L (98-107); Estimated Glomerular Filt Rate > 60.0 mL/min (>60); Glucose 112 mg/dL (80-110); HEMOLYSIS < 15 (0-50); Sodium 134 mmol/L (137-145)
[2020-09-21] MEDS: metroNIDAZOLE 500 MG TABLET PO (09:43)
[2020-09-21] MEDS: METOPROLOL ER 25 MG TABLET PO (09:46)
[2020-09-21] MEDS: ENOXAPARIN 40 MG/0.4 ML SYRINGE SUBCUT (09:47)
[2020-09-21] MEDS: AMLODIPINE 5 MG TABLET PO (09:49)
[2020-09-21] MEDS: levoFLOXacin 500 MG TABLET PO (09:55)
--- NOTE | 2020-09-21 12:29 | PC.NURSE ---
Day shift: Pt left unit at approx 1225. Paperwork signed and all questions answered. Drain removed by Dr Keenan this Am and Pt tolerated well. Dressing applied to that area and it is CDI. MD scripts sent electronic by MD. Pt has all personal belongings. Pt's spouse was here for d/c teaching and will drive her home. Taken to that car in WC by NELL Ramos. Abdominal surgery site JER per MD and wound in well approximated with alvino. o s/s of infection.
--- NOTE | 2020-09-21 14:59 | PM.DS.1 ---
History of Present Illness History of Present Illness Chief complaint: bloated stomach, pain Narrative: 74-year-old healthy woman developed abdominal pain with course of yesterday. She was evaluated in the walk-in clinic went home and then return to the emergency room last night for worsening abdominal pain. No associated nausea vomiting diarrhea or dysuria. In the emergency room laboratory studies were significant for a white blood cell count of 17. CT abdomen pelvis demonstrates acute appendicitis with adjacent of for fluid no abscess. She was admitted to the hospital has remained NPO with IV Zosyn and pain control overnight. This morning she feels significantly better but continues to have right lower and mid lower abdominal pain. Prior abdominal surgery significant for hysterectomy. Discharge Providers Provider Date of admission: 09/14/20 20:05 Discharge Date: 09/21/20 Primary care physician: Keke Barillas DO Consults: 09/20/20 13:06 Consult to Physical Therapy Evaluate & Treat Comment: Physician Instructions: Evaluate and Treat Discharge provider: Dionte Francis MD Summary Hospital Course Discharge Diagnosis: Acute perforated appendicitis Hospital Course: Patient was taken to the operating room 09/15 underwent a laparoscopic appendectomy. Findings were significant for a necrotic perforated appendix with feculent peritonitis which was washed out with several liters of irrigation and a drain was placed. Postoperatively she was maintained on IV Zosyn. She had a gradual rise in leukocytosis postoperatively despite being on IV antibiotics. A follow-up CT abdomen pelvis demonstrated an abdominal interloop abscess that was not amenable to percutaneous drainage. Development of an early postoperative abscess is a common finding in the setting of a necrotic perforated appendix. The patient was taken back to the operating room on 09/19 and underwent a laparoscopic washout. She remained in the hospital with IV antibiotics until cultures finalized and antibiotics were switched from Zosyn to Cirpofloxacin and Flagyl. At discharge she is feeling well leukocytosis continues to downtrend on PO antibiotics tolerating a diet drain is serous and removed. Exam Vital Signs (past 8 hours): - 09/21/20 07:46 09/21/20 09:00 09/21/20 10:35 Temperature 97.6 F Pulse Rate 74 80 Respiratory Rate 16 Blood Pressure 156/78 H Pulse Oximetry 97 97 09/21/20 10:39 09/21/20 11:50 Temperature 96.7 F L Pulse Rate 78 Respiratory Rate 16 Blood Pressure 154/86 H Pulse Oximetry 97 99 Oxygen Delivery Method Room Air Oxygen Flow Rate 0 Narrative Exam Narrative: General adult female alert oriented no acute distress Chest nonlabored respirations Abdomen soft appropriately tender to palpation. Incision clean dry intact. Objective Labs Result Diagrams: 09/21/20 04:55 09/21/20 04:55 Labs: Laboratory Results - last 24 hr 09/21/20 09/21/20 04:55 04:55 WBC 13.8 H RBC 3.55 L Hgb 11.9 L Hct 35.3 L MCV 99.6 MCH 33.4 MCHC 33.5 RDW 13.4 Plt Count 426 H Neut % (Auto) 68.8 Lymph % (Auto) 15.3 L [place] % (Auto) 13.4 Eos % (Auto) 2.3 Baso % (Auto) 0.2 Neut # (Auto) 9500 H Lymph # (Auto) 2100 [place] # (Auto) 1800 H Eos # (Auto) 300 Baso # (Auto) 0 Sodium 134 L Potassium 4.0 Chloride 101 Carbon Dioxide 29 BUN 12 Creatinine 0.52 Estimated GFR > 60.0 BUN/Creatinine Ratio 23.1 H Glucose 112 H Calcium 8.2 L Magnesium 2.0 PFSH Medical History Essential hypertension Hyperlipidemia Surgical History History of hysterectomy History of repair of rotator cuff Family History Mother Esophageal cancer Tobacco dependence Father Lung cancer Tobacco dependence Social History household members: spouse Smoking Status: Never smoker alcohol intake: current Discharge Plan Discharge Plan Patient Disposition: Home Provider Discharge Comment: Ok to resume Aspirin at discharge No lifting >20 lbs x 4 weeks No [address] while taking narcotics Follow up Friday 09/29 11:15 AM [facility] Discharge orders & Medications Prescriptions: New tramadol 50 mg tablet 50 mg PO Q6H PRN (Reason: pain) Qty: 30 RF: 0 docusate sodium [Colace] 100 mg capsule 100 mg PO BID Qty: 30 RF: 0 acetaminophen [Tylenol] 325 mg capsule 650 mg PO QID PRN (Reason: pain) Qty: 60 RF: 0 metronidazole [Flagyl] 500 mg tablet 500 mg PO TID Qty: 21 RF: 0 levofloxacin 500 mg tablet 500 mg PO DAILY Qty: 7 RF: 0 Continued latanoprost 0.005 % Drops 1 drp EYE-BOTH BEDTIME RF: 0 lisinopril 20 mg Tablet 40 mg PO DAILY RF: 0 aspirin 81 mg Tablet,Delayed Release (Dr/Ec) 81 mg PO WEEKLY RF: 0 metronidazole 0.75 % Cream 1 applic TOPICAL BEDTIME RF: 0 metoprolol succinate [Toprol XL] 25 mg Tablet Extended Release 24 Hr 25 mg PO DAILY RF: 0 cholecalciferol (vitamin D3) [Vitamin D3] 25 mcg (1,000 unit) Capsule 25 mcg PO DAILY RF: 0 rosuvastatin 10 mg Tablet 10 mg PO DAILY RF: 0 Centrum Silver 0.4-300-250 mg-mcg-mcg Tablet 1 tab PO DAILY RF: 0 coQ10 (ubiquinol) 100 mg Capsule 100 mg PO DAILY RF: 0 psyllium husk [Metamucil] 0.4 gram Capsule 0.8 g PO DAILY RF: 0 nitroglycerin [Nitrostat] 0.4 mg Tablet, Sublingual 0.4 mg sublingual [id number] PRN (Reason: Chest Pain) Qty: 10 RF: 0 amlodipine [Norvasc] 5 mg tablet 5 mg PO DAILY RF: 0 Follow up/Referrals: Dionte Francis MD [Physician] - 09/29/20 11:15 am (09/29 @ 11:[address] francis ) Diet/Activity/Treatments Diet: Regular Skin/Wound/Dressing Care Report to your healthcare provider any signs of infection, such as:: chills, fever, increased pain, unusual drainage and unusual redness Visit Report/Discharge Packet Instructions: Appendicitis, DI for an Appendectomy, DI for Laparoscopy, DI for Constipation, How to Prevent Falls, How to Perform Postsurgical Deep Breathing and Coughing, Stool Softeners, Metronidazole, Tramadol, Levofloxacin, [facility]: Wound Care Discharge Data Primary Care Provider: Keke Barillas VTE Deep Vein Thrombosis/Pulmonary Embolism Present on Admission: No
== END 2020-09-21 12:31 | disposition home or self-care (01) | DRG 339 ==
LOC: ED 18:43 → AC 20:06
PROVIDERS: Surgery; Admitting Provider Surgery; Emergency Provider Emergency Medicine; PCP Family Medicine; Referring Provider Emergency Medicine; Visit Provider Surgery
PROC: 0DTJ4ZZ Resection of Appendix, Percutaneous Endoscopic Approach (ICD-10-PCS; CPT 44970; principal; 2020-09-15 16:45)
PROC: 0W9G40Z Drainage of Peritoneal Cavity with Drainage Device, Percutaneous Endoscopic Approach (ICD-10-PCS; CPT 49320; principal; 2020-09-19 11:00)
DX: K35.21 Acute appendicitis with generalized peritonitis, with abscess (principal); Z16.11 Resistance to penicillins; Z16.19 Resistance to other specified beta lactam antibiotics; K66.0 Peritoneal adhesions (postprocedural) (postinfection); I10 Essential (primary) hypertension; E78.5 Hyperlipidemia, unspecified; R60.0 Localized edema; Z20.822 Contact with and (suspected) exposure to COVID-19
CPT/HCPCS: 36415; 44970; 49322; 71045; 74177; 80048; 80053; 81001; 83605; 83690; 83735; 85025; 85610; 85730; 87040; 87070; 87075; 87077; 87186; 87205; 87635; 93005; 93010; 93970; 96365; 96375; 97116; 97161; 99222; 99284; C9803; C9290; J0330; J0744; J1100; J1650; J1885; J2060; J2250; J2405; J2543; J2704; J3010; J3475; Q9967

== ENCOUNTER → 2021-07-14 10:08 | Outpatient (CLI) | payer MEDICARE, OTHER, SELFPAY ==
[2020-09-29 11:37] VITALS: BMI 26.2
[2021-07-14 11:27] LABS: BUN Creatinine Ratio 18.9 (6-22); Blood Urea Nitrogen 10 mg/dL (7-17); Carbon Dioxide 27 mmol/L (22-32); Chloride 99 mmol/L (98-107); Estimated Glomerular Filt Rate > 60.0 mL/min (>60); Glucose 114 mg/dL (80-110); HEMOLYSIS < 15 (0-50); Potassium 4.2 mmol/L (3.4-5.1); Sodium 134 mmol/L (137-145)
--- NOTE | 2021-07-14 12:10 | DI.CT.S_ITS ---
PROCEDURE: CT ABDOMEN PELVIS W CON INDICATIONS: ventral hernia TECHNIQUE: After the administration of oral and IV contrast, axial sections were acquired from the lung bases to the pubic symphysis. Coronal and sagittal reformats were performed. For radiation dose reduction, the following was used: automated exposure control, adjustment of mA and/or kV according to patient size. COMPARISON: Merged With [facility], CT, CT ABDOMEN PELVIS W CON, 09/18/2020, 12:45. FINDINGS: Image quality: Excellent. Lung bases: Unremarkable. Heart: No significant findings. ABDOMEN: Liver: Unremarkable. Gallbladder: Within normal limits. Biliary ducts: Unremarkable. Pancreas: Unremarkable. Spleen: Unremarkable. Adrenal Glands: Unremarkable. Kidneys and Ureters: Unremarkable. Stomach and Bowel: Stomach, small bowel loops, and colon are unremarkable. There is suggestion of prior appendectomy. Peritoneum: No abnormal intraperitoneal fluid. No free air. Ventral Wall: Midline anterior abdominal wall defect is seen measures up to 7.2 cm in with with herniation sac containing mesenteric fat and a short segment of transverse colon. No signs of incarceration or strangulation. Abdominal Nodes: No retroperitoneal or mesenteric adenopathy by size criteria. Vessels: Aorta and inferior vena cava are normal in size. PELVIS: Pelvic Organs: Unremarkable. Bladder: Mild diffuse bladder wall thickening is seen, no discrete bladder wall mass. Pelvic Nodes: No enlarged lymph nodes. Miscellaneous: No inguinal hernias are seen. Bones: No suspicious bony lesion. No acute vertebral body compression fracture. Degenerative disc disease throughout lumbar spine is seen more prominent at L4-5 and L5-S1 levels. IMPRESSION: 1. Interval development of midline ventral hernia containing mesenteric fat and short segment of transverse colon. No evidence of incarceration. 2. No bowel obstruction. No abnormal bowel wall thickening or mesenteric fat stranding. No free fluid or free air. Postop changes from prior appendectomy. 3. Degenerative disc disease throughout lumbar spine. No acute compression fracture. Dictated by: Matthew Rios M.D. on 07/14/2021 at 12:30 Approved by: Matthew Rios M.D. on 07/14/2021 at 12:33
== END ==
PROVIDERS: PCP Family Medicine; Referring Provider Surgery; Visit Provider Surgery
DX: K43.9 Ventral hernia without obstruction or gangrene (principal); M51.36 Other intervertebral disc degeneration, lumbar region
CPT/HCPCS: 36415; 74177; 80048

== ENCOUNTER → 2021-07-18 10:15 | Outpatient (CLI) | payer MEDICARE, OTHER, SELFPAY ==
[2020-09-29 11:37] VITALS: BMI 26.2
[2021-07-18 11:21] LABS: COVID19 -Nasal RAPID Negative (Negative)
== END ==
PROVIDERS: PCP Family Medicine; Visit Provider Surgery
DX: Z01.812 Encounter for preprocedural laboratory examination (principal); Z20.822 Contact with and (suspected) exposure to COVID-19
CPT/HCPCS: 87635; C9803

== ENCOUNTER 2021-07-19 08:03 | Day surgery (SDC) | payer MEDICARE, OTHER, SELFPAY ==
[2020-09-29 11:37] VITALS: BMI 26.2
[2021-07-19 08:31] VITALS: BP 171/84; PULSE 96; RESP 15; TEMP 36.6; O2SAT 98; BMI 22.8
[2021-07-19] MEDS: LACTATED RINGERS 1,000 ML 200 ML IV (08:44)
--- NOTE | 2021-07-19 08:48 | PM.HP.1 ---
History of Present Illness History of Present Illness Date Patient Seen: 07/19/21 Time Patient Seen: 08:49 Chief complaint: SDC Narrative: 75-year-old female here for colonoscopy secondary to Hemoccult-positive stool. She had previous colonoscopy 11 years ago which was normal. No personal family history of intestinal malignancy. No hematochezia melanotic stool nausea vomiting hematemesis. Patient History Medical History Essential hypertension Hyperlipidemia Surgical History History of hysterectomy History of repair of rotator cuff Family & Social History Family History Mother Esophageal cancer Tobacco dependence Father Lung cancer Tobacco dependence Social History: household members spouse Tobacco & Substance use: Smoking Status Never smoker alcohol intake current alcohol intake frequency 0-2 drinks per day Substance Use Type does not use Meds Home Medications and Allergies Home Medications Medication Instructions Recorded Confirmed Type aspirin 81 mg tablet,delayed 81 mg PO WEEKLY 01/03/20 07/19/21 History release cholecalciferol (vitamin D3) 25 25 mcg PO DAILY 01/03/20 07/19/21 History mcg (1,000 unit) capsule (Vitamin D3) coQ10 (ubiquinol) 100 mg capsule 100 mg PO DAILY 01/03/20 07/19/21 History latanoprost 0.005 % eye drops 1 drp EYE-BOTH BEDTIME 01/03/20 07/19/21 History lisinopril 20 mg tablet 40 mg PO DAILY 01/03/20 07/19/21 History metoprolol succinate 25 mg 25 mg PO DAILY 01/03/20 07/19/21 History tablet,extended release 24 hr (Toprol XL) metronidazole 0.75 % topical cream 1 applic TOPICAL BEDTIME 01/03/20 07/19/21 History sguwyevu-mtx-hxdyl acid 0.4 1 tab PO DAILY 01/03/20 07/19/21 History mg-lycopene 300 mcg-lutein 250 mcg tablet (Centrum Silver) psyllium husk 0.4 gram capsule 0.8 g PO DAILY 01/03/20 07/19/21 History (Metamucil) rosuvastatin 10 mg tablet 10 mg PO DAILY 01/03/20 07/19/21 History nitroglycerin 0.4 mg sublingual 0.4 mg SUBLINGUAL [id number] PRN #10 01/04/20 07/19/21 Rx tablet (Nitrostat) tab amlodipine 5 mg tablet (Norvasc) 5 mg PO DAILY 09/15/20 07/19/21 History acetaminophen 325 mg capsule 650 mg PO QID PRN #60 cap 09/16/20 07/19/21 Rx (Tylenol) docusate sodium 100 mg capsule 100 mg PO BID #30 cap 09/16/20 07/19/21 Rx (Colace) tramadol 50 mg tablet 50 mg PO Q6H PRN #30 tab 09/16/20 06/16/21 Rx levofloxacin 500 mg tablet 500 mg PO DAILY #7 tab 09/21/20 07/19/21 Rx metronidazole 500 mg tablet 500 mg PO TID #21 tab 09/21/20 07/19/21 Rx (Flagyl) lactobacillus combination no.9 4 4,000 mmu cells PO DAILY #21 cap 09/29/20 07/19/21 Rx billion cell capsule (Adult 50 Plus Probiotic) sodium,potassium,mag sulfates 17.5 See Rx Instructions PO .COMPLEX 06/30/21 Rx gram-3.13 gram-1.6 gram oral soln #354 ml (Suprep Bowel Prep Kit) Allergies Allergy/AdvReac Type Severity Reaction Status Date / Time codeine Allergy Verified 07/19/21 08:36 Exam Vital Signs (past 8 hours): - 07/19/21 08:31 Temperature 98 F Pulse Rate 96 H Respiratory Rate 15 Blood Pressure 171/84 H Pulse Oximetry 98 Oxygen Delivery Method Room Air Narrative Exam Narrative: GENERAL: Adult female in no apparent distress HEENT: No scleral icterus CV: Regular rate, no peripheral edema LUNGS: No increased work of breathing. Patient speaks in full sentences without oxygen support. ABDOMEN: Soft, non-tender, non-distended NEURO: Nonfocal, normal strength throughout SKIN: Warm and dry Assessment & Plan Assessment and plan (1) Positive FIT (fecal immunochemical test): Status: Acute Assessment & Plan narrative: The patient requires colonoscopy secondary to positive fit. Technical details were discussed. Risks, benefits, alternatives explained. Risks including but not limited to myocardial infarction, aspiration, bleeding, pain, missed lesion, incomplete examination, need for further radiographic studies, colonic perforation, and need for major abdominal surgery were discussed. All questions were answered to their satisfaction, and they are in agreement with this plan. Time Spent With Patient Critical Care time: I spent a total of [] minutes of critical care time on this patient's care today; this time is exclusive of procedural time.
--- NOTE | 2021-07-19 09:39 | P.OP.COLON_ITS ---
Operative Date/Time/Diagnoses Date of procedure: 07/19/21 Time of procedure: 09:39 Pre-op diagnosis: Positive fit Post-op diagnosis: same Procedure & Clinicians Study performed: Colonoscopy Same procedure as scheduled: Yes Indications: Positive fit Surgeon: Dionte Keenan Procedure Notes Procedure in detail: Medications: Conscious sedation using 6mg IV midazolam and 150mcg IV of fentanyl The history and physical was performed/updated and the patient is ASA class is 2. The procedure was discussed in detail with the patient. Potential risks complications including infection, bleeding, missed diagnosis, perforation, need for surgery, and were explained. Their questions were answered and informed consent was obtained. Patient was brought to the procedure room and placed standard monitoring equipment. The patient's vital signs were monitored continuously throughout the entire procedure. Prior to starting time-out was performed. The patient was placed in the left lateral recumbent position. Procedural sedation was a dministered. Examination began with a thorough inspection of the perianal area there was no evidence of fissures, fistulae, external hemorrhoids or cutaneous malignancy. The colonoscopy scope was then placed into the anal canal and was advanced to the cecum, which was identified by the ileocecal valve, the appendiceal orifice and the confluence of the taenia. The scope was then slowly withdrawn examining colon thoroughly in all directions, irrigating it of any residual stool. FINDINGS 1. Tortuous sigmoid colon 2. Scattered diverticuli 3. No masses or polyps The patient tolerated the procedure well. They will be discharged once criteria are met. The prep was of good/excellent quality. The withdrawl time was 6 minutes. The sedation time was 37minutes. Specimen(s): none sent Complications: none Impression: Normal colonoscopy Post-procedure Recommendations: Colonoscopy in 10 years Disposition: same day surgery
[2021-07-19] MEDS: MIDAZOLAM 5 MG/5 ML VIAL IV (09:40)
[2021-07-19] MEDS: fentaNYL 250 MCG/5 ML INJ IV (09:41)
[2021-07-19 09:45] VITALS: BP 138/64; PULSE 73; RESP 18; TEMP 36.4; O2SAT 98
[2021-07-19 09:49] VITALS: BP 122/64; PULSE 70; RESP 15; O2SAT 98
[2021-07-19 09:55] VITALS: BP 122/64; PULSE 67; RESP 18; O2SAT 97
[2021-07-19 09:59] VITALS: BP 131/62; PULSE 70; RESP 18; O2SAT 97
[2021-07-19 10:10] VITALS: BP 120/64; PULSE 70; RESP 16; TEMP 36.8; O2SAT 96
== END 2021-07-19 10:17 | disposition home or self-care (01) ==
PROVIDERS: PCP Family Medicine; Referring Provider Surgery; Visit Provider Surgery
PROC: 0DJD8ZZ Inspection of Lower Intestinal Tract, Via Natural or Artificial Opening Endoscopic (ICD-10-PCS; CPT 45378; principal; 2021-07-19 09:15)
DX: R19.5 Other fecal abnormalities (principal); K57.30 Diverticulosis of large intestine without perforation or abscess without bleeding
CPT/HCPCS: 45378; 99152; 99153; J2250; J3010

== ENCOUNTER → 2021-07-26 08:53 | Outpatient (CLI) | payer MEDICARE, OTHER, SELFPAY ==
[2020-09-29 11:37] VITALS: BMI 26.2
[2021-07-26 10:08] LABS: COVID19 -Nasal RAPID Negative (Negative)
== END ==
PROVIDERS: PCP Family Medicine; Visit Provider Surgery
DX: Z01.812 Encounter for preprocedural laboratory examination (principal); Z20.822 Contact with and (suspected) exposure to COVID-19
CPT/HCPCS: 87635; C9803

== ENCOUNTER 2021-07-27 06:37 | Day surgery (SDC) | payer MEDICARE, OTHER, SELFPAY ==
[2020-09-29 11:37] VITALS: BMI 26.2
[2021-07-21 14:55] VITALS: BMI 22.8
[2021-07-27] VITALS (15 sets, daily range): BP systolic 121–167; BP diastolic 54–88; PULSE 71–108; RESP 14–19; TEMP 36.6–37.1; O2SAT 91–100; BMI 22.8
[2021-07-27] MEDS: GABAPENTIN 300 MG CAPSULE PO (07:19)
[2021-07-27] MEDS: ACETAMINOPHEN 325 MG TABLET 975 MG PO (07:19)
--- NOTE | 2021-07-27 07:38 | PM.HP.1 ---
History of Present Illness History of Present Illness Date Patient Seen: 07/27/21 Time Patient Seen: 07:38 Chief complaint: OPB Narrative: 75-year-old man with a symptomatic reducible incisional hernia here for elective repair. No interval changes in health. Please refer to the H& P from May 2021 for further detail. She Patient History Medical History Essential hypertension Hyperlipidemia Surgical History History of hysterectomy (1990) History of laparoscopic appendectomy History of repair of rotator cuff (2008) Hx of bilateral cataract extraction (2014) Hx of tonsillectomy (~195) Family & Social History Family History Mother Esophageal cancer Tobacco dependence Father Lung cancer Tobacco dependence Social History: household members spouse Tobacco & Substance use: Smoking Status Never smoker alcohol intake current alcohol intake frequency a few times a week Substance Use Type does not use Meds Home Medications and Allergies Home Medications Medication Instructions Recorded Confirmed Type aspirin 81 mg tablet,delayed 81 mg PO WEEKLY 01/03/20 07/27/21 History release cholecalciferol (vitamin D3) 25 25 mcg PO DAILY 01/03/20 07/27/21 History mcg (1,000 unit) capsule (Vitamin D3) coQ10 (ubiquinol) 100 mg capsule 100 mg PO DAILY 01/03/20 07/27/21 History latanoprost 0.005 % eye drops 1 drp EYE-BOTH BEDTIME 01/03/20 07/27/21 History lisinopril 20 mg tablet 40 mg PO DAILY 01/03/20 07/27/21 History metoprolol succinate 25 mg 25 mg PO DAILY 01/03/20 07/27/21 History tablet,extended release 24 hr (Toprol XL) metronidazole 0.75 % topical cream 1 applic TOPICAL BEDTIME 01/03/20 07/19/21 History wenvepsd-rkp-gkzmq acid 0.4 1 tab PO DAILY 01/03/20 07/27/21 History mg-lycopene 300 mcg-lutein 250 mcg tablet (Centrum Silver) psyllium husk 0.4 gram capsule 0.8 g PO DAILY 01/03/20 07/19/21 History (Metamucil) rosuvastatin 10 mg tablet 10 mg PO DAILY 01/03/20 07/27/21 History nitroglycerin 0.4 mg sublingual 0.4 mg SUBLINGUAL [id number] PRN #10 01/04/20 07/19/21 Rx tablet (Nitrostat) tab amlodipine 5 mg tablet (Norvasc) 5 mg PO DAILY 09/15/20 07/27/21 History acetaminophen 325 mg capsule 650 mg PO QID PRN #60 cap 09/16/20 07/21/21 Rx (Tylenol) docusate sodium 100 mg capsule 100 mg PO BID #30 cap 09/16/20 07/21/21 Rx (Colace) tramadol 50 mg tablet 50 mg PO Q6H PRN #30 tab 09/16/20 07/21/21 Rx levofloxacin 500 mg tablet 500 mg PO DAILY #7 tab 09/21/20 07/19/21 Rx metronidazole 500 mg tablet 500 mg PO TID #21 tab 09/21/20 07/19/21 Rx (Flagyl) lactobacillus combination no.9 4 4,000 mmu cells PO DAILY #21 cap 09/29/20 07/21/21 Rx billion cell capsule (Adult 50 Plus Probiotic) Allergies Allergy/AdvReac Type Severity Reaction Status Date / Time codeine AdvReac Nausea Verified 07/27/21 07:16 Exam Narrative Exam Narrative: General adult female alert oriented Chest nonlabored respiration Abdomen soft nontender nondistended Assessment & Plan Assessment and plan (1) Incisional hernia: Qualifiers: Obstruction and gangrene presence: without obstruction or gangrene Qualified Code(s): K43.2 - Incisional hernia without obstruction or gangrene Status: Acute Assessment & Plan narrative: 75-year-old woman with a asymptomatic reducible incisional hernia here for elective repair. We again discussed the nature of the operation. We discussed operative risks including hemorrhage, infection, recurrence of hernia, damage to surrounding structures, intestinal injury. Her questions have been answered she is in agreement with this plan. Time Spent With Patient Critical Care time: I spent a total of [] minutes of critical care time on this patient's care today; this time is exclusive of procedural time.
[2021-07-27] MEDS: LACTATED RINGERS 1,000 ML 100 ML IV ×2 (07:42→08:45)
[2021-07-27] MEDS: CEFAZOLIN 2 GM/20 ML SYRINGE IV (08:00)
--- NOTE | 2021-07-27 08:10 | SUR.OPER ---
Supine on padded OR bed, head on pillow, arms secured on padded arm boards at <90 degrees abduction, legs uncrossed, safety belt at thigh, tape over blanket over lower legs. Gel pad placed between posterior thigh and urinary catheter tubing.
[2021-07-27] MEDS: BUPIVACAINE 0.25% (PF) VIAL 30 ML INJ (08:22)
[2021-07-27] MEDS: ACETAMINOPHEN IV 1,000 MG/100 ML VIAL 400 MG IV (08:36)
[2021-07-27] MEDS: MIDAZOLAM 2 MG/2 ML VIAL IV (10:03)
--- NOTE | 2021-07-27 10:25 | SUR.PHASEI ---
TAP block time out at 1006. TAP block started 1007. completed 1016. sleeping at this time. sissy well.
--- NOTE | 2021-07-27 10:34 | P.OP_ITS ---
Operative Date/Time/Diagnoses Date of procedure: 07/27/21 Time of procedure: 10:34 Pre-op diagnosis: Incisional ventral hernia Post-op diagnosis: same Procedure & Clinicians Procedure: Open incisional hernia repair with mesh Same procedure as scheduled: Yes Indications: 75-year-old woman history of previous open abdominal surgery here for elective incisional ventral hernia repair. Surgeon: Dionte Keenan Anesthesia Type: General Operative Notes Findings: 8 cm fascial defect periumbilical Specimen(s): none sent Estimated Blood Loss (mL): 50 Procedure in detail: Patient was brought to the operating room placed supine on the table. Bilateral lower extremity compression devices were applied. They received 2 g of Ancef prior to skin incision. Prepped and draped in sterile fashion, ioban was placed. Time-out was performed. The previous midline incision which was periumbilical was incised with a knife. The previous midline scar was excised. The subcutaneous tissue was divided to expose the midline fascia. The fascia had a 8 cm fascial defect containing intestine. The fascia was grasped elevated and sharply opened. Complete lysis of all visceral adhesions was performed with sharp dissection. A towel was then placed over the visceral content to protect it out of harms way. The retromuscular space was entered by incising the posterior rectus sheath approximately 1 cm from its edge. The retromuscular plane was developed using electrocautery with care to protect the neurovascular structures. The retrorectus space was developed in the same fashion on the contralateral side. The spaces were then connected superiorly above the umbilicus and inferiorly towards the pubis. The posterior sheath was then c losed in running fashion with 2-0 PDS suture. I selected a Bard 8 x 6 cm polypropelene soft tissue mesh placed in the retro rectus space. The mesh was anchored with interrupted Ethibond in transfascial fashion in four quadrants using the rodríguez balderas device such that the mesh lay under physiologic tension. A 19 Turkish flat drain was placed anterior to the mesh and benhind the anterior sheath brought out through the skin. The anterior sheath/ linea alba was then closed in running fashion with Vicryl suture. Hemostasis was checked. The subcutaneous tissue was then reapproximated using Vicryl skin closed with running 4-0 Monocryl followed by the application of Dermabond. Patient emerged from anesthesia was extubated and transferred to recovery room in stable condition. Complications: none Post-operative Condition: stable Disposition: same day surgery
[2021-07-27] MEDS: OXYCODONE IR 5 MG TABLET PO (10:59)
--- NOTE | 2021-07-27 11:30 | SUR.PHASEII ---
Discharge instructions reviewed with pt and her spouse (Gera) at bedside. Both verbalized understanding. PIV removed, no complications noted.
== END 2021-07-27 11:43 | disposition home or self-care (01) ==
LOC: OR 06:39 → AC 06:39
PROVIDERS: PCP Family Medicine; Referring Provider Surgery; Visit Provider Surgery
PROC: (CPT 49560; principal; 2021-07-27 07:45)
DX: K43.2 Incisional hernia without obstruction or gangrene (principal); I10 Essential (primary) hypertension; E78.5 Hyperlipidemia, unspecified
CPT/HCPCS: 49560; 49568; J0131; J0330; J0690; J1100; J2250; J2704; J3010

== ENCOUNTER → 2024-03-18 08:20 | Outpatient (CLI) | payer MEDICARE, OTHER, SELFPAY ==
[2020-09-29 11:37] VITALS: BMI 26.2
--- NOTE | 2024-03-18 08:24 | EKG_ITS ---
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
[2024-03-18 09:06] LABS: Add Manual Diff / Slide Review NO; Basophils Absolute Auto 100 /uL (0-100); Basophils Percent Auto 1.5 % (0-2); Eosinophils Absolute Auto 300 /uL (0-450); Eosinophils Percent Auto 4.9 % (2-4); Hematocrit 39.8 % (36-46); Hemoglobin 13.5 g/dL (12.0-16.0); Lymphocytes Absolute Auto 1400 /uL (1100-4500); Lymphocytes Percent Auto 27.4 % (25-40); Mean Corpuscular HGB Conc 33.9 % (30-36); Mean Corpuscular Hemoglobin 34.3 PG (26-34); Monocytes Absolute Auto 500 /uL (0-900); Monocytes Percent Auto 10.1 % (3-14); Neutrophils Absolute Auto 2900 /uL (1500-7000); Neutrophils Percent Auto 56.1 % (50-75); Platelet Count 303 X10^3/uL (150-400); Red Blood Cell Count 3.94 X10^6/uL (4.0-5.2); Red Cell Distribution Width 12.7 % (11.6-14.8); White Blood Cell Count 5.2 X10^3/uL (4.5-11.0)
[2024-03-18 09:18] LABS: Hemoglobin A1C% w Est Avg Glu 5.5 % (4.0-6.0)
[2024-03-18 09:27] LABS: BUN Creatinine Ratio 14.5 (6-22); Blood Urea Nitrogen 8 mg/dL (7-17); Calcium 9.7 mg/dL (8.4-10.2); Carbon Dioxide 29 mmol/L (22-32); Chloride 97 mmol/L (98-107); Estimated Glomerular Filt Rate > 60 mL/min (>60); Glucose 107 mg/dL (80-110); HEMOLYSIS < 15 (0-50); Potassium 4.6 mmol/L (3.4-5.1); Sodium 128 mmol/L (137-145)
[2024-03-18 09:50] LABS: Free T4, Direct Thyroxine 0.86 ng/dL (0.78-2.19)
[2024-03-18 10:04] LABS: Thyroid Stimulating Hormone 1.32 uIU/mL (0.47-4.68)
== END ==
PROVIDERS: PCP Internal Medicine; Referring Provider Orthopaedic Surgery Foot and Ankle Surgery; Visit Provider Orthopaedic Surgery Foot and Ankle Surgery
DX: Z01.818 Encounter for other preprocedural examination (principal); R73.9 Hyperglycemia, unspecified; Z01.812 Encounter for preprocedural laboratory examination; F43.20 Adjustment disorder, unspecified
CPT/HCPCS: 36415; 80048; 83036; 84439; 84443; 85025; 93005

== ENCOUNTER → 2025-04-16 11:19 | Outpatient (CLI) | payer MEDICARE, OTHER, SELFPAY ==
[2020-09-29 11:37] VITALS: BMI 26.2
--- NOTE | 2025-04-16 | DI.US.S_ITS ---
PROCEDURE: US PERIPH VENOUS LOW EXTREM RT INDICATIONS: Other specified soft tissue disorders TECHNIQUE: Real-time imaging, as well as color and pulse Doppler interrogation, were performed of the lower extremity deep veins from the inguinal ligament to the popliteal fossa, with documentation of the visualized calf veins. COMPARISON: None. FINDINGS: The common femoral, femoral, popliteal, and the visualized calf veins are normally compressible, and free of intraluminal thrombus. Color and pulse Doppler demonstrate normal phasic intraluminal flow. There is normal augmentation response to distal compression maneuver. Complex collection in the popliteal/medial knee region measuring 9.7 x 3.5 x 4.7 cm. IMPRESSION: No findings of lower extremity deep venous thrombosis. Complex collection within the popliteal region extending medially measuring up to 9.7 cm. Consider hematoma. Recommend clinical correlation and follow-up imaging as necessary to ensure resolution. Dictated by: Dany Damon M.D. on 04/16/2025 at 13:03 Approved by: Dany Damon M.D. on 04/16/2025 at 13:04
== END ==
PROVIDERS: PCP Registered Nurse; Referring Provider Registered Nurse; Visit Provider Orthopaedic Surgery Foot and Ankle Surgery
DX: M79.89 Other specified soft tissue disorders (principal)
CPT/HCPCS: 93971